=== PATIENT | female | born 1960 | race Caucasian/White ===

== ENCOUNTER → 2018-04-24 | Outpatient (CLI) | payer BC | END | disposition home or self-care (01) | LOC: LABPAT 12:44 | PROVIDERS: ATTEND Surgery Plastic and Reconstructive Surgery | DX: Z01.812 Encounter for preprocedural laboratory examination (principal); Z79.899 Other long term (current) drug therapy | CPT/HCPCS: 36415; 84132 ==

== ENCOUNTER 2018-04-28 08:15 | Inpatient (IN) | payer BC ==
[2018-04-21 08:54] VITALS: BMI 30.2
--- NOTE | 2018-04-28 07:12 | P.GSHP ---
History of Present Illness H&P Date: 04/28/18 CHIEF COMPLAINT: Paraesophageal hiatal hernia with gastroesophageal reflux disease. HISTORY OF PRESENT ILLNESS: The patient is a 58-year-old female who presents with paraesophageal hiatal hernia. She has completed an esophageal manometry including upper endoscopy workup. Now she presents for surgical intervention. PAST MEDICAL HISTORY: Please see list. PAST SURGICAL HISTORY: Please see list. MEDICATIONS: Please see list. ALLERGIES: Please see list. SOCIAL HISTORY: No illicit drug use FAMILY HISTORY: No reports of Crohn disease or ulcerative colitis. REVIEW OF ORGAN SYSTEMS: CONSTITUTIONAL: No reports of fevers or chills. GI: Denies any blood in stools or constipation. PHYSICAL EXAM: VITAL SIGNS: Stable GENERAL: Well-developed pleasant and in no acute distress. HEENT: No scleral icterus. Extraocular movements grossly intact. Moist buccal mucosa. NECK: Supple without lymphadenopathy. CHEST: Unlabored respirations. Equal bilateral excursions. CARDIOVASCULAR: Regular rate and rhythm. Distal 2+ pulses. ABDOMEN: Soft, nondistended. No peritoneal signs. MUSCULOSKELETAL: No clubbing, cyanosis, or edema. SKIN: Well-perfused. Good skin turgor. MANOMETRY: Shows no evidence of achalasia or scleroderma. ASSESSMENT: 1. Diaphragmatic paraesophageal hiatal hernia with severe gastroesophageal reflux disease. PLAN: 1. Recommend proceeding with a robotic paraesophageal hiatal hernia with possible mesh. 2. Benefits and risks of surgical intervention was discussed including possibility of open technique. 3. Inpatient hospitalization recommended of 2 nights 4. DVT prophylaxis. 5. Antibiotic prophylaxis. Past Medical History Past Medical History: Asthma, Diabetes Mellitus, GERD/Reflux, Hyperlipidemia, Hypertension, Osteoarthritis (OA), Sleep Apnea/CPAP/BIPAP Additional Past Medical History / Comment(s): borderline sleep apnea-doesn't use anything for, current steroids-has been on for few months, & frequently for past year History of Any Multi-Drug Resistant Organisms: None Reported Past Surgical History: Section, Cholecystectomy, Orthopedic Surgery, Tonsillectomy, Tubal Ligation Additional Past Surgical History / Comment(s): C/S x2, arthroscopy left knee, recent EGD Past Anesthesia/Blood Transfusion Reactions: Motion Sickness, Postoperative Nausea & Vomiting (PONV) Past Psychological History: Anxiety, Depression Smoking Status: Never smoker Past Alcohol Use History: None Reported Past Drug Use History: None Reported - Past Family History Mother Family Medical History: Cancer Medications and Allergies Home Medications Medication Instructions Recorded Confirmed Type Albuterol Nebulized [Ventolin 2.5 mg INHALATION Q6H PRN 04/21/18 04/21/18 History Nebulized] Albuterol Sulfate [Proair Hfa] 1 - 2 puff INHALATION Q6HR PRN 04/21/18 04/21/18 History Black Cohosh 540 mg PO DAILY 04/21/18 04/21/18 History Ezetimibe [Zetia] 10 mg PO DAILY 04/21/18 04/21/18 History Fluticasone/Salmeterol [Advair 1 inhalation PO BID 04/21/18 04/21/18 History 250-50 Diskus] Loratadine [Claritin] 10 mg PO DAILY 04/21/18 04/21/18 History Losartan-Hctz 50-12.5 mg [Hyzaar 1 each PO DAILY 04/21/18 04/21/18 History 50-12.5] Mometasone Furoate [Nasonex Nasal 1 - 2 spray EA NOSTRIL DAILY 04/21/18 History [place]] Montelukast [Singulair] 10 mg PO HS 04/21/18 04/21/18 History Multivit with Calcium,Iron,Min 1 each PO DAILY 04/21/18 04/21/18 History [Women's Multivitamin] Omeprazole [PriLOSEC] 20 mg PO AC-BRKFST 04/21/18 04/21/18 History Ranitidine HCl [Zantac] 150 mg PO HS 04/21/18 04/21/18 History Sertraline [Zoloft] 100 mg PO DAILY 04/21/18 04/21/18 History Theophylline Anhydrous 300 mg PO BID 04/21/18 04/21/18 History [Theophylline] Tiotropium [place] [Spiriva] 1 cap INHALATION DAILY 04/21/18 04/21/18 History metFORMIN HCL [Glucophage] 500 mg PO QAM 04/21/18 04/21/18 History predniSONE 5 mg PO DAILY 04/21/18 04/21/18 History Allergies Allergy/AdvReac Type Severity Reaction Status Date / Time ciprofloxacin [From Cipro] Allergy Dyspnea Verified 04/21/18 08:15 metronidazole [From Flagyl] Allergy Dyspnea Verified 04/21/18 08:15 sulfamethoxazole Allergy Rash/Hives Verified 04/21/18 08:15 [From Bactrim] trimethoprim [From Bactrim] Allergy Rash/Hives Verified 04/21/18 08:15 codeine AdvReac Nausea & Verified 04/21/18 08:15 Vomiting
[~2018-04-28 08:15] MED LIST: ACETAMINOPHEN IV (For NPO) 1,000 MG in EMPTY BAG 1 BAG IVPB ONE; DEXAMETHASONE SOD PHOSPHATE 10 MG/ML 1 ML VIAL IV ONE; HEPARIN SODIUM,PORCINE 5,000 UNIT/ML 1 ML VIAL SQ ONE; LIDOCAINE 1% 20 ML VIAL (10MG/ML) FOR IV START INTRADERMA PRN; MIDAZOLAM 2 MG/2 ML VIAL IV PRN; ONDANSETRON 4 MG/2 ML VIAL IVP ONE; SCOPOLAMINE 1.5MG/72HR PATCH TRANSDERM ONE; SCOPOLAMINE 1.5MG/72HR PATCH TRANSDERM STA; ceFAZolin IN SWFI 2 GM/20 ML SYRINGE IVP ONE
[2018-04-28] MEDS: LACTATED RINGERS 1,000 ML IV SCH ×2 (12:50→20:24)
[2018-04-28 12:52] LABS: Glucose,Whole Blood 125 mg/dL (75-99)
[2018-04-28 13:15] LABS: Basophils % (A) 1 %; Eosinophils # (A) 0.2 k/uL (0-0.7); Eosinophils % (A) 3 %; HCT 41.7 % (34.0-46.0); HGB 14.3 gm/dL (11.4-16.0); Lymphocytes # (A) 0.9 k/uL (1.0-4.8); Lymphocytes % (A) 15 %; MCHC 34.2 g/dL (31.0-37.0); MCV 87.8 fL (80.0-100.0); Mean Platelet Volume 7.3; Monocytes # (A) 0.3 k/uL (0-1.0); Monocytes % (A) 5 %; Neutrophils # (A) 4.8 k/uL (1.3-7.7); Neutrophils % (A) 75 %; Platelet Count 326 k/uL (150-450); RBC 4.75 m/uL (3.80-5.40); WBC 6.3 k/uL (3.8-10.6)
[2018-04-28 13:22] LABS: ALT 34 U/L (9-52); AST 21 U/L (14-36); Albumin 4.5 g/dL (3.5-5.0); Alkaline Phosphatase 62 U/L (38-126); Anion Gap 13 mmol/L; Blood Urea Nitrogen 15 mg/dL (7-17); Calcium 9.9 mg/dL (8.4-10.2); Carbon Dioxide 26 mmol/L (22-30); Chloride 100 mmol/L (98-107); Glucose 131 mg/dL (74-99); Sodium 139 mmol/L (137-145); Total Bilirubin 0.3 mg/dL (0.2-1.3); Total Protein 6.7 g/dL (6.3-8.2)
[2018-04-28] MEDS ORDERED: ACETAMINOPHEN IV (For NPO) 1,000 MG/100 ML VIAL IVPB ONE (15:06)
[2018-04-28] MEDS ORDERED: MIDAZOLAM 2 MG/2 ML VIAL ONE (15:32)
[2018-04-28] MEDS ORDERED: NEOSTIGMINE 1 MG/ML 10 ML VIAL ONE (15:32)
[2018-04-28] MEDS ORDERED: fentaNYL (PF) 50 MCG/ML 2 ML AMP ONE (15:32)
[2018-04-28] MEDS ORDERED: ROCURONIUM BROMIDE 10 MG/ML 10 ML VIAL IV ONE (15:32)
[2018-04-28] MEDS ORDERED: SUCCINYLCHOLINE CHLORIDE 100 MG/5 ML SYR IV ONE (15:32)
[2018-04-28] MEDS ORDERED: HYDROmorphone (PF) 1 MG/ML ONE (15:32)
[2018-04-28] MEDS ORDERED: KETOROLAC 30 MG/ML 1 ML VIAL ONE (15:32)
[2018-04-28] MEDS ORDERED: LIDOCAINE 1% INJ 10MG/ML (20 ML MDV) ONE (15:32)
[2018-04-28] MEDS ORDERED: ePHEDrine SULFATE/0.9% NACL/PF 50 MG/5 ML SYRINGE IV ONE (15:32)
[2018-04-28] MEDS ORDERED: GLYCOPYRROLATE 0.2 MG/ML 2 ML VIAL ONE (15:32)
[2018-04-28] MEDS ORDERED: PROPOFOL 10 MG/ML 20 ML VIAL IV ONE (15:32)
[2018-04-28] MEDS ORDERED: ROPIVACAINE 5 MG/ML 30 ML VIAL MISCELLANE ONE (15:46)
[2018-04-28] MEDS ORDERED: LACTATED RINGERS 1,000 ML IV ONE (16:32)
[2018-04-28] MEDS ORDERED: ONDANSETRON 4 MG/2 ML VIAL IVP PRN (17:46)
--- NOTE | 2018-04-28 17:46 | P.PCN ---
Date of Procedure: 04/28/18 Preoperative Diagnosis: Gastroesophageal reflux disease hiatal hernia, distal esophageal spasm Postoperative Diagnosis: Same, incarcerated paraesophageal midline hiatal hernia 6 x 9 cm Procedure(s) Performed: Robotic-assisted reduction and repair of incarcerated midline paraesophageal hiatal hernia with mesh Anesthesia: DEBRA, local Surgeon: Gabby Patel Estimated Blood Loss (ml): 5 Pathology: none sent Condition: stable Disposition: floor Operative Findings: 1. Extremely large Paraesophageal hiatal hernia with incarcerated upper pole a stomach size of 6 cm axial and 9 cm longitudinal 2. Mesh with primary closure with accommodated 54-Marshallese hiatal repair 3. Hill grade 1+ lower esophageal valve 4. No gastric ulcers or duodenal ulcers identified 5. Intraesophageal length of 3 cm obtained after reduction and mobilization of distal esophagus 6. Incision of hiatal hernia sac with reduction into the abdomen 7. Mesh repair with underlay
[2018-04-28] MEDS ORDERED: ALBUTEROL NEBULIZED 2.5 MG/3 ML INHALATION PRN (17:49)
[2018-04-28] MEDS: ACETAMINOPHEN IV (For NPO) 1,000 MG in EMPTY BAG 1 BAG IVPB ONE ×2 (18:00→18:15)
[2018-04-28] MEDS: HYDROmorphone 0.5 MG/0.5 ML SYRINGE IVP PRN ×2 (18:24→18:37)
[2018-04-28 18:29] LABS: Glucose,Whole Blood 176 mg/dL (75-99)
[2018-04-28] MEDS ORDERED: SODIUM CHLORIDE 0.9% 1,000 ML IV ONE ×2 (18:30)
[2018-04-28] MEDS ORDERED: INSULIN ASPART 100 UNIT/ML 1 ML 10 ML VIAL SQ ONE (18:37)
[2018-04-28] MEDS ORDERED: ONDANSETRON 4 MG/2 ML VIAL IVP ONE (18:39)
[2018-04-28] MEDS: SODIUM CHLORIDE 0.9% 1,000 ML IV SCH (20:24)
[2018-04-28] MEDS: METOCLOPRAMIDE 5 MG/ML 2 ML VIAL IVP SCH (20:29)
[2018-04-28] MEDS ORDERED: DEXAMETHASONE SOD PHOSPHATE 10 MG/ML 1 ML VIAL IV STA (20:46)
[2018-04-28] MEDS ORDERED: ACETAMINOPHEN ORAL SUSP 160 MG/5 ML CUP PO PRN (20:47)
[2018-04-28] MEDS ORDERED: KETOROLAC 30 MG/ML 1 ML VIAL IVP PRN (20:47)
[2018-04-28] MEDS ORDERED: MONTELUKAST 10 MG TAB PO SCH (21:00)
[2018-04-28] MEDS: SYMBICORT 80-4.5 MCG INHALER INHALATION SCH (21:12)
[2018-04-28] MEDS: ceFAZolin IN SWFI 2 GM/20 ML SYRINGE IVP SCH (23:50)
[2018-04-29] MEDS: METOCLOPRAMIDE 5 MG/ML 2 ML VIAL IVP SCH ×3 (01:20→11:53)
[2018-04-29 06:54] LABS: Glucose,Whole Blood 144 mg/dL (75-99)
[2018-04-29] MEDS: INSULIN ASPART 100 UNIT/ML 1 ML 10 ML VIAL SQ SCH ×2 (06:57→11:52)
[2018-04-29] MEDS: SODIUM CHLORIDE 0.9% 1,000 ML IV SCH (07:15)
[2018-04-29] MEDS: SYMBICORT 80-4.5 MCG INHALER INHALATION SCH (08:28)
[2018-04-29] MEDS: IPRATROPIUM 0.5 MG/2.5 ML NEBU INHALATION SCH ×2 (08:28→11:51)
--- NOTE | 2018-04-29 08:28 | FL ---
SINGLE CONTRAST ESOPHAGRAM: CLINICAL HISTORY: 58-year-old female status post Tamika fundoplication, rule out leak/obstruction TECHNIQUE: Single contrast exam performed with 50 ml Isovue-370 contrast. Total fluoroscopy time: 28 seconds. Total images: 15 FINDINGS: The patient swallowed oral contrast without difficulty or delay. Esophageal peristalsis shows mild t ertiary contractions. There are postsurgical changes of Tamika fundoplication with good flow of contr ast across the surgical site into the stomach. Prominent air distention of the stomach is incidentall y noted. There is no evidence of contrast extravasation to suggest leak. Trace postsurgical free air below the right hemidiaphragm. IMPRESSION: 1. No evidence of leak or obstruction status post Tamika fundoplication. 2. Trace postsurgical free air on the right.
[2018-04-29] MEDS: ceFAZolin IN SWFI 2 GM/20 ML SYRINGE IVP SCH (08:52)
[2018-04-29] MEDS ORDERED: THEOPHYLLINE 24 HOUR 300 MG CAP.ER.24H PO SCH (09:00)
[2018-04-29] MEDS ORDERED: ENOXAPARIN 40 MG/0.4 ML SYRINGE SQ SCH (09:00)
[2018-04-29] MEDS ORDERED: predniSONE 5 MG TAB PO SCH (09:00)
[2018-04-29] MEDS ORDERED: EZETIMIBE 10 MG TAB PO SCH (09:00)
[2018-04-29] MEDS ORDERED: PANTOPRAZOLE 40 MG/10 ML VIAL IV SCH (09:00)
[2018-04-29] MEDS ORDERED: LOSARTAN-HCTZ 50-12.5 MG 1 EACH TAB PO SCH (09:00)
[2018-04-29] MEDS ORDERED: LORATADINE 10 MG TAB PO SCH (09:00)
[2018-04-29 09:09] VITALS: BP 112/72; PULSE 84; RESP 20; TEMP 97
[2018-04-29] MEDS ORDERED: PANTOPRAZOLE 40 MG TABLET PO SCH (10:00)
[2018-04-29 11:49] LABS: Glucose,Whole Blood 100 mg/dL (75-99)
--- NOTE | 2018-04-29 12:22 | P.DS ---
Providers Date of admission: 04/28/18 12:05 Expected date of discharge: 04/29/18 Attending physician: Gabby Patel Primary care physician: Stated None - Discharge Diagnosis(es) (1) Paraesophageal hernia with obstruction but no gangrene Current Visit: Yes Status: Acute (2) Gastroesophageal reflux disease with esophagitis Current Visit: Yes Status: Acute (3) COPD (chronic obstructive pulmonary disease) Current Visit: Yes Status: Acute (4) Obesity (BMI 30.0-34.9) Current Visit: Yes Status: Acute (5) Obesity due to excess calories Current Visit: Yes Status: Acute (6) Hypertensive heart disease Current Visit: Yes Status: Acute (7) Depressive disorder Current Visit: Yes Status: Acute (8) Diabetes type 2, controlled Current Visit: Yes Status: Acute Hospital Course: The patient is a 58-year-old female status post robotic-assisted repair of incarcerated large paraesophageal hiatal hernia repair with mesh. She is doing extraordinarily well. Pain is well controlled. No nausea or vomiting. In fact , symptoms of reflux completely resolved. She completed an esophagram negative for leaks or obstruction. Discharge was reviewed including liquid diet until seen in the office. Avoidance of straws and carbonated beverages addressed. High-protein diet also advised. Pertinent Studies: Esophagram negative for leaks or obstruction Procedures: Robotic repair of incarcerated paraesophageal hiatal hernia 6 x 9 cm with mesh, intraoperative EGD Patient Condition at Discharge: Good Plan - Discharge Summary Discharge Rx Participant: Yes New Discharge Prescriptions: Continue Sertraline [Zoloft] 100 mg PO DAILY Losartan-Hctz 50-12.5 mg [Hyzaar 50-12.5] 1 tab PO DAILY Fluticasone/Salmeterol [Advair 250-50 Diskus] 1 puff INHALATION RT-DAILY Ezetimibe [Zetia] 10 mg PO DAILY metFORMIN HCL [Glucophage] 500 mg PO QAM Tiotropium [place] [Spiriva] 1 cap INHALATION RT-DAILY Montelukast [Singulair] 10 mg PO HS Loratadine [Claritin] 10 mg PO DAILY predniSONE 5 mg PO DAILY Mometasone Furoate [Nasonex Nasal [place]] 1 - 2 spray EA NOSTRIL DAILY Albuterol Sulfate [Proair Hfa] 1 - 2 puff INHALATION RT-Q6H PRN PRN Reason: Dyspnea Albuterol Nebulized [Ventolin Nebulized] 2.5 mg INHALATION RT-Q6H PRN PRN Reason: Dyspnea Discontinued Ranitidine HCl [Zantac] 150 mg PO HS Omeprazole [PriLOSEC] 20 mg PO AC-BRKFST Multivit with Calcium,Iron,Min [Women's Multivitamin] 1 tab PO DAILY [place] Coh[place] 540 mg PO DAILY Theophylline 12 Hour [Michele-Dur] 300 mg PO BID Discharge Medication List Albuterol Nebulized [Ventolin Nebulized] 2.5 mg INHALATION RT-Q6H PRN 04/21/18 [ History] Albuterol Sulfate [Proair Hfa] 1 - 2 puff INHALATION RT-Q6H PRN 04/21/18 [ History] Ezetimibe [Zetia] 10 mg PO DAILY 04/21/18 [History] Fluticasone/Salmeterol [Advair 250-50 Diskus] 1 puff INHALATION RT-DAILY [History] Loratadine [Claritin] 10 mg PO DAILY 04/21/18 [History] Losartan-Hctz 50-12.5 mg [Hyzaar 50-12.5] 1 tab PO DAILY 04/21/18 [History] Mometasone Furoate [Nasonex Nasal [place]] 1 - 2 spray EA NOSTRIL DAILY 04/21/18 [ History] Montelukast [Singulair] 10 mg PO HS 04/21/18 [History] Sertraline [Zoloft] 100 mg PO DAILY 04/21/18 [History] Tiotropium [place] [Spiriva] 1 cap INHALATION RT-DAILY 04/21/18 [History] metFORMIN HCL [Glucophage] 500 mg PO QAM 04/21/18 [History] predniSONE 5 mg PO DAILY 04/21/18 [History] Follow up Appointment(s)/Referral(s): Gabby Patel MD [STAFF PHYSICIAN] - 05/02/18 ([facility], Call on Tuesday to confirm a time) Patient Instructions/Handouts: Laparoscopic Hiatal Hernia Repair (DC) Activity/Diet/Wound Care/Special Instructions: No lifting over 4 pounds in 4 weeks. May shower. No bath tub soaks. Liquid diet only as described by your surgeon. Recommend high protein diet at least 75 g daily. Please check your blood sugar glucose levels. Hypoglycemia may occur with high-protein diet. Discharge Disposition: HOME SELF-CARE
--- NOTE | 2018-04-29 12:24 | P.PN ---
Subjective Progress Note Date: 04/29/18 The patient is a 58-year-old female status post robotics assisted hiatal hernia repair. Her pain is well-controlled. She is toelarating liquid diet. "My reflux is gone.". Her is at bedside. Objective - Vital Signs Vital signs: Vital Signs Temp 97.0 F L 04/29/18 08:40 Pulse 84 04/29/18 11:53 Resp 20 04/29/18 08:40 BP 112/72 04/29/18 08:40 Pulse Ox 96 04/29/18 08:40 Intake & Output 04/28/18 04/29/18 04/29/18 18:59 06:59 18:59 Intake Total 2074 Output Total 5 300 200 Balance 2069 -300 -200 Weight 72.575 kg Intake: IV 2074 Output: Urine 300 200 Estimated Blood Loss 5 Other: Voiding Method Toilet # Voids 1 - Exam GENERAL: Well developed and in no acute distress. Pleasant. HEENT: No sclera icterus. Extraocular movements grossly intact. Moist buccal mucosa. Head is atraumatic, normocephalic. Hears conversational speech. No nasal drainage. NECK: Supple without lymphadenopathy. No JV distention. CHEST: Non-labored respirations and equal bilateral excursions. CARDIOVASCULAR: Regular rate and rhythm. Palpable 2+ radial pulses. ABDOMEN: Soft, nontender. Nondistended. Incisions clean dry and intact. No signs of infection. MUSCULOSKELETAL: No clubbing, cyanosis or edema. NEUROLOGIC: No focal or lateralizing signs. PSYCH: Appropriate affect. Alert and oriented to person, place and time. SKIN: Good skin turgor. Well perfused. - Labs CBC & Chem 7: 04/28/18 12:57 04/28/18 12:57 Labs: Abnormal Lab Results - Last 24 Hours (Table) 04/28/18 04/28/18 04/28/18 Range/Units 12:46 12:57 12:57 Lymphocytes # 0.9 L (1.0-4.8) k/uL Glucose 131 H (74-99) mg/dL POC Glucose (mg/dL) 125 H (75-99) mg/dL 04/28/18 04/29/18 04/29/18 Range/Units 18:20 06:53 11:47 Lymphocytes # (1.0-4.8) k/uL Glucose (74-99) mg/dL POC Glucose (mg/dL) 176 H 144 H 100 H (75-99) mg/dL - Imaging and Cardiology Esophagram reviewed and negative for leaks. Assessment and Plan (1) Paraesophageal hernia with obstruction but no gangrene Current Visit: Yes Status: Acute Code(s): K44.0 - DIAPHRAGMATIC HERNIA WITH OBSTRUCTION, WITHOUT GANGRENE SNOMED Code(s): 99610573 (2) Gastroesophageal reflux disease with esophagitis Current Visit: Yes Status: Acute Code(s): K21.0 - GASTRO-ESOPHAGEAL REFLUX DISEASE WITH ESOPHAGITIS SNOMED Code(s): 764133387 (3) COPD (chronic obstructive pulmonary disease) Current Visit: Yes Status: Acute Code(s): J44.9 - CHRONIC OBSTRUCTIVE PULMONARY DISEASE, UNSPECIFIED SNOMED Code(s): 22300592 (4) Obesity (BMI 30.0-34.9) Current Visit: Yes Status: Acute Code(s): E66.9 - OBESITY, UNSPECIFIED SNOMED Code(s): 254201304 (5) Obesity due to excess calories Current Visit: Yes Status: Acute Code(s): E66.09 - OTHER OBESITY DUE TO EXCESS CALORIES SNOMED Code(s): 667308137 (6) Hypertensive heart disease Current Visit: Yes Status: Acute Code(s): I11.9 - HYPERTENSIVE HEART DISEASE WITHOUT HEART FAILURE SNOMED Code(s): 30055227 (7) Depressive disorder Current Visit: Yes Status: Acute Code(s): F32.9 - MAJOR DEPRESSIVE DISORDER , SINGLE EPISODE, UNSPECIFIED SNOMED Code(s): 34621054 (8) Diabetes type 2, controlled Current Visit: Yes Status: Acute Code(s): E11.9 - TYPE 2 DIABETES MELLITUS WITHOUT COMPLICATIONS SNOMED Code(s): 05709574 Plan: 1. Discharge instructions reviewed including discontinuance of antacid therapy 2. She has had no significant pain and is agreeable Tylenol only. 3. Follow-up in the office in 5 days.
--- NOTE | 2018-04-30 11:25 | P.PN ---
Progress Note - Text Progress Note Date: 04/30/18 Patient called at home. reports she is doing extremely well. Discharge time and follow-up appointment given.
--- NOTE | 2018-04-30 18:14 | P.OP ---
Date of Procedure: 04/28/18 Description of Procedure: Date of Procedure: 04/28/18 SURGEON: MIESHA FAJARDO MD PREOPERATIVE DIAGNOSES: 1. Gastroesophageal reflux disease. 2. Paraesophageal hiatal hernia, midline 3. Distal esophageal spasm 4. Chronic obstructive pulmonary disease 5. Asthma 6. Obesity due to excess calories, BMI 30.2 7. Hypertensive heart disease 8. Depressive disorder 9. Diabetes type 2, [id number] without complication 10. Obstructive sleep apnea 11. Hyperlipidemia POSTOPERATIVE DIAGNOSES: 1. Gastroesophageal reflux disease. 2. Paraesophageal hiatal hernia incarcerated paraesophageal midline, 6 x 9 cm 3. Distal esophageal spasm 4. Chronic obstructive pulmonary disease 5. Asthma 6. Obesity due to excess calories, BMI 30.2 7. Hypertensive heart disease 8. Depressive disorder 9. Diabetes type 2, [id number]-ncallfjeh without complication 10. Obstructive sleep apnea 11. Hyperlipidemia OPERATION: 1. Robotic-assisted da Annmarie Xi laparoscopic reduction and repair of incarcerated paraesophageal hiatal hernia, 6 x 9 cm, with [place] Biopatch A 8 x 8 cm. 2. Intraoperative esophagogastroduodenoscopy COMPLICATIONS: None. Anesthesia: GETA, local Estimated Blood Loss (ml): 5 Pathology: none sent Condition: stable Disposition: floor Operative Findings: 1. Extremely large paraesophageal hiatal hernia with incarcerated upper pole of the stomach size of 6 cm axial and 9 cm longitudinal 2. Mesh with primary closure with accommodated 54-[place] hiatal repair 3. Hill grade 1+ lower esophageal valve 4. No gastric ulcers or duodenal ulcers identified 5. Intraesophageal length of 3 cm obtained after reduction and mobilization of distal esophagus 6. Incision of hiatal hernia sac with reduction into the abdomen 7. Mesh repair with underlay 8. Console time 69 minutes INDICATIONS: The patient is a 67-year-old female who presents with gastroesophageal reflux and a symptomatic diaphragmatic hiatal hernia. Preoperative workup including upper endoscopy demonstrated hiatal hernia. She completed an esophageal manometry demonstrating distal esophageal spasm. Given the severity of her symptoms, she had elected for surgical intervention. Benefits and risks including bleeding, infection, recurrence, dysphagia, injury to the lung, need for further surgery was described at length. Informed consent was obtained. DESCRIPTION: The patient was brought into the operating room and placed in supine position. Preoperatively he had received heparin subcutaneously for DVT prophylaxis. After general induction, the abdomen was prepped and draped in standard sterile fashion. The patient had previously voided prior to coming to the operating room. [place] draping was placed along the abdomen. A timeout protocol was confirmed with the surgical team, for which the patient's name, procedure to be performed including DVT prophylaxis with bilateral SCDs, and preoperative antibiotics were also confirmed. Robotic da Annmarie Xi system was prepped and primed. At 12 cm from the xiphoid to just below the umbilicus, proposed port sites were marked with indelible marker along the left axillary line, left mid-clavicular line with each ports were marked 10 cm from each other. A 5 mm 0 degrees laparoscopic trocar entry was performed along the left upper quadrant. The abdomen was insufflated to 15 mmHg pressure he tolerated well. Diagnostic laparoscopy demonstrated no injury to bowel, viscera, or mesentery. The gallbladder was unremarkable. The liver surface was unremarkable. No injury had occurred to the small bowel or viscera. Along the hiatus, moderate size hiatal hernia anterior aspect with incarcerated superior pole of the stomach. Next, one 8 mm robotic port was placed along the right upper abdomen. An 8-mm port was were placed along the left lateral abdominal wall. The camera 8-mm port was maintained along the epigastrium via the hernia defect. A 12 mm port was placed along the left upper abdominal wall after exchanging the 5 mm port. Please note that the ports were placed at least 20 cm away from the target anatomy. Care was taken to check that each robotic arm were safely away from collision with the bed or the patient. At the epigastrium, a medium sized Elise liver retractor was placed under direct visualization with the [employer] placed over the right shoulder of the patient. The additional third robotic arm was used.. The patient was repositioned in reverse Trendelenburg position at 14-degrees after lowering the bed. The robot was docked above the left side of the patient. Using a grasper for arm 3, a grasper for arm 1, including vessel sealer for arm 4, the robotic system was docked and primed as described. Instruments were interchanged by the social worker assistant. I had sat at the console. The phrenoesophageal ligament was incised and the distal esophagus was mobilized circumferentially. Care was taken to avoid any injury to the bilateral vagi nerves. An incarcerated hiatal hernia sac was found along the mediastinum and retracted into the abdominal cavity. Next dissection into the mediastinum was performed to the mid esophagus. The left and right crura was identified. The hiatal hernia sac was incarcerated into the mediastinum and divided to allow complete mobilization and freeing of the distal esophagus into the abdominal cavity. Care was taken to avoid any gastrotomy to the incarcerated upper pole of the stomach. The measured defect was consistent with 9 cm length and 6 cm in width. The distal esophagus of at least 3 cm was brought into the abdominal cavity. Once the hiatus and crura was dissected, 2-0 VLOC sutures were placed as a running suture to re-approximate the diaphragmatic hiatus posteriorly. To buttress the repair, a [place] Biopatch A was prepared along the back table and cut in a chauhan-hole fashion as to reinforce the repair as an underlay. The mesh was placed along the crural repair posteriorly then cut in half and tagged using horizontal mattress sutures using 2-0 VLOC. I went to the head of the bed to perform intraoperative esophagogastroduodenoscopy. An Olympus gastroscope was passed through the posterior oropharynx, where the GE junction was found distal to the diaphragmatic hiatus. The intra-abdominal esophageal length obtained during the case was over 3 cm. The stomach was entered. The duodenum was unremarkable. Retroflexion of the scope confirmed a Hill grade 1+ lower esophageal valve. The stomach had been desufflated. No evidence of leaks were found or mucosal defects of the esophagus or stomach. This concluded the endoscopic portion of the case. The robot was undocked from the patient. I re-scrubbed into the case. All instruments and pneumoperitoneum were evacuated from the abdominal cavity. Incisions were reapproximated using 4-0 Monocryl in an interrupted subcuticular fashion. All incisions were cleaned using dilute hydrogen peroxide. The 12-mm port site fascial defect was less than 8 mm in size. Dermabond was applied to the skin. Local anesthetic was infiltrated in all wounds for postop analgesia. Multiple intra-abdominal films were obtained. At the end of the procedure, needle, sponge, and instrument count was verified correct by the surgical dressing maker. The patient had tolerated the procedure well and was taken to the postanesthesia unit in stable condition. Intraoperative films were reviewed with the patient's family who were pleased with the level of care.
== END 2018-04-29 12:55 | disposition home or self-care (01) | DRG 328 ==
LOC: 2ORMAIN 12:05 → 6PED 17:35
PROVIDERS: ADMIT Surgery Plastic and Reconstructive Surgery; ATTEND Surgery Plastic and Reconstructive Surgery
PROC: 0BUT4JZ Supplement Diaphragm with Synthetic Substitute, Percutaneous Endoscopic Approach (ICD-10-PCS; principal; 2018-04-28 13:35)
PROC: 8E0W4CZ Robotic Assisted Procedure of Trunk Region, Percutaneous Endoscopic Approach (ICD-10-PCS; principal; 2018-04-28 13:35)
DX: K44.0 Diaphragmatic hernia with obstruction, without gangrene (principal); E11.9 Type 2 diabetes mellitus without complications; E66.09 Other obesity due to excess calories; E78.5 Hyperlipidemia, unspecified; M19.90 Unspecified osteoarthritis, unspecified site; F32.9 Major depressive disorder, single episode, unspecified; F41.9 Anxiety disorder, unspecified; G47.33 Obstructive sleep apnea (adult) (pediatric); I11.9 Hypertensive heart disease without heart failure; J44.9 Chronic obstructive pulmonary disease, unspecified; K21.0 Gastro-esophageal reflux disease with esophagitis; K22.4 Dyskinesia of esophagus; Z68.30 Body mass index [BMI] 30.0-30.9, adult; Z90.49 Acquired absence of other specified parts of digestive tract; Z79.51 Long term (current) use of inhaled steroids; Z79.52 Long term (current) use of systemic steroids; Z79.899 Other long term (current) drug therapy; Z79.84 Long term (current) use of oral hypoglycemic drugs; Z88.1 Allergy status to other antibiotic agents; Z88.5 Allergy status to narcotic agent; Z88.2 Allergy status to sulfonamides
CPT/HCPCS: 74210; 80053; 85025; 86850; 86900; 86901; 94640

== ENCOUNTER → 2018-07-18 | Outpatient (CLI) | payer BC ==
[2018-07-18 16:06] LABS: Basophils # (A) 0.1 k/uL (0-0.2); Basophils % (A) 1 %; Eosinophils # (A) 0.6 k/uL (0-0.7); Eosinophils % (A) 9 %; HCT 44.3 % (34.0-46.0); HGB 14.3 gm/dL (11.4-16.0); Lymphocytes # (A) 1.6 k/uL (1.0-4.8); Lymphocytes % (A) 24 %; MCH 28.7 pg (25.0-35.0); MCHC 32.3 g/dL (31.0-37.0); MCV 88.9 fL (80.0-100.0); Mean Platelet Volume 7.2; Monocytes # (A) 0.4 k/uL (0-1.0); Monocytes % (A) 7 %; Neutrophils # (A) 3.7 k/uL (1.3-7.7); Neutrophils % (A) 57 %; Platelet Count 359 k/uL (150-450); RBC 4.98 m/uL (3.80-5.40); RDW 12.8 % (11.5-15.5); WBC 6.5 k/uL (3.8-10.6)
[2018-07-18 16:18] LABS: Total Eosinophil Count 625 #EOS/uL (150-300)
== END ==
LOC: LABWHC1 15:26
PROVIDERS: ATTEND Internal Medicine
DX: J45.50 Severe persistent asthma, uncomplicated (principal)
CPT/HCPCS: 36415; 85008; 85025

== ENCOUNTER → 2021-09-24 | Outpatient (CLI) | payer BC ==
--- NOTE | 2021-09-24 09:51 | FL ---
ESOPHOGRAM. HISTORY: Dysphagia Esophagram was performed per the air contrast technique. The patient swallowed barium and effervesce nt crystals without difficulty or delay. Esophageal peristalsis and motility appear to be within normal limits. There is no evidence for filling defect, mass or diverticulum. Small hiatal hernia noted. Subsequently single contrast cervical esophagram was performed which fails demonstrate evidence for a spiration penetration or mass. IMPRESSION: Small hiatal hernia noted.
== END | disposition home or self-care (01) ==
LOC: RADUSWWP 07:50
PROVIDERS: ATTEND Surgery Plastic and Reconstructive Surgery
DX: K44.9 Diaphragmatic hernia without obstruction or gangrene (principal)
CPT/HCPCS: 74220

== ENCOUNTER 2021-10-28 08:16 | Day surgery (SDC) | payer BC ==
[2021-10-26 16:30] VITALS: BMI 26.8
[~2021-10-28 08:16] MED LIST changes: -ACETAMINOPHEN IV (For NPO) 1,000 MG in EMPTY BAG 1 BAG IVPB ONE; -DEXAMETHASONE SOD PHOSPHATE 10 MG/ML 1 ML VIAL IV ONE; -HEPARIN SODIUM,PORCINE 5,000 UNIT/ML 1 ML VIAL SQ ONE; +LACTATED RINGERS 1,000 ML IV SCH; -LIDOCAINE 1% 20 ML VIAL (10MG/ML) FOR IV START INTRADERMA PRN; -MIDAZOLAM 2 MG/2 ML VIAL IV PRN; -ONDANSETRON 4 MG/2 ML VIAL IVP ONE; -SCOPOLAMINE 1.5MG/72HR PATCH TRANSDERM ONE; -SCOPOLAMINE 1.5MG/72HR PATCH TRANSDERM STA; -ceFAZolin IN SWFI 2 GM/20 ML SYRINGE IVP ONE
--- NOTE | 2021-10-28 08:39 | P.GSHP ---
History of Present Illness H&P Date: 10/28/21 CHIEF COMPLAINT: GERD HISTORY OF PRESENT ILLNESS: The patient is a 61-year-old female who presents reports gastroesophageal reflux disease. Upper endoscopy was offered for further evaluation and management. PAST MEDICAL HISTORY: Please see list. PAST SURGICAL HISTORY: Please see list. MEDICATIONS: Please see list. ALLERGIES: Please see list. SOCIAL HISTORY: No illicit drug use FAMILY HISTORY: No reports of Crohn disease or ulcerative colitis. REVIEW OF ORGAN SYSTEMS: CONSTITUTIONAL: No reports of fevers or chills. GI: Denies any blood in stools or constipation. PHYSICAL EXAM: VITAL SIGNS: Stable GENERAL: Well-developed and pleasant in no acute distress. HEENT: No scleral icterus. Extraocular movements grossly intact. Moist buccal mucosa. NECK: Supple without lymphadenopathy. CHEST: Unlabored respirations. Equal bilateral excursions. CARDIOVASCULAR: Regular rate and rhythm. Distal 2+ pulses. ABDOMEN: Soft, nondistended. MUSCULOSKELETAL: No clubbing, cyanosis, or edema. ASSESSMENT: 1. Gastroesophageal reflux disease PLAN: 1. Recommend proceeding with an upper endoscopy Past Medical History Past Medical History: Asthma, CVA/TIA, Diabetes Mellitus, GERD/Reflux, Hyperlipidemia, Hypertension, Osteoarthritis (OA), Sleep Apnea/CPAP/BIPAP Additional Past Medical History / Comment(s): borderline sleep apnea-doesn't use anything for, current steroids-has been on for few months, & frequently for past year History of Any Multi-Drug Resistant Organisms: None Reported Past Surgical History: Section, Cholecystectomy, Orthopedic Surgery, Tonsillectomy, Tubal Ligation Additional Past Surgical History / Comment(s): C/S x2, arthroscopy left knee, EGD, HIATAL HERNIA REPAIR Past Anesthesia/Blood Transfusion Reactions: Motion Sickness, Postoperative Nausea & Vomiting (PONV) Smoking Status: Never smoker - Past Family History Mother Family Medical History: Cancer Medications and Allergies Home Medications Medication Instructions Recorded Confirmed Type Albuterol Sulfate [Proair Hfa] 1 - 2 puff INHALATION RT-Q6H PRN 04/21/18 10/26/21 History Ezetimibe [Zetia] 10 mg PO DAILY 04/21/18 10/26/21 History Fluticasone/Salmeterol [Advair 2 puff INHALATION BID 04/21/18 10/26/21 History 250-50 Diskus] Loratadine [Claritin] 10 mg PO DAILY 04/21/18 10/26/21 History Losartan-Hctz 50-12.5 mg [Hyzaar 1 tab PO QAM 04/21/18 10/26/21 History 50-12.5] Mometasone Furoate [Nasonex 50 mcg 1 - 2 spray EA NOSTRIL DAILY 04/21/18 10/26/21 History Nasal [place]] Montelukast [Singulair] 10 mg PO HS 04/21/18 10/26/21 History Sertraline [Zoloft] 100 mg PO DAILY 04/21/18 10/26/21 History Tiotropium [place] [Spiriva] 1 cap INHALATION DAILY 04/21/18 10/26/21 History metFORMIN HCL [Glucophage] 500 mg PO QAM 04/21/18 10/26/21 History Alendronate Sodium [Fosamax] 70 mg PO MO 10/19/21 10/26/21 History Aspirin 81 mg PO DAILY 10/19/21 10/26/21 History Benralizumab [Fasenra] 30 mg SQ Q60D 10/19/21 10/26/21 History Calcium Carbonate [Calcium] 1,200 mg PO DAILY 10/19/21 10/26/21 History Multivitamins, Thera [Multivitamin 1 tab PO DAILY 10/19/21 10/26/21 History (formulary)] amLODIPine [Norvasc] 2.5 mg PO HS 10/19/21 10/26/21 History Allergies Allergy/AdvReac Type Severity Reaction Status Date / Time ciprofloxacin [From Cipro] Allergy Dyspnea Verified 10/28/21 08:36 metronidazole [From Flagyl] Allergy Dyspnea Verified 10/28/21 08:36 sulfamethoxazole Allergy Rash/Hives Verified 10/28/21 08:36 [From Bactrim] trimethoprim [From Bactrim] Allergy Rash/Hives Verified 10/28/21 08:36 codeine AdvReac Nausea & Verified 10/28/21 08:36 Vomiting
[2021-10-28] MEDS ORDERED: LIDOCAINE 1% (10MG/ML) FOR IV START INTRADERMA ONE (08:58)
[2021-10-28 09:02] VITALS: RESP 16; TEMP 98.5
[2021-10-28 09:04] LABS: Glucose,Whole Blood 116 mg/dL (75-99)
[2021-10-28] MEDS ORDERED: ONDANSETRON 4 MG/2 ML VIAL ONE (09:04)
[2021-10-28] MEDS ORDERED: ONDANSETRON 4 MG/2 ML VIAL IVP ONE (09:05)
[2021-10-28] MEDS ORDERED: LIDOCAINE 1% INJ 10MG/ML (20 ML MDV) ONE (09:06)
[2021-10-28] MEDS ORDERED: PROPOFOL 10 MG/ML 20 ML VIAL IV ONE (09:06)
[2021-10-28 09:25] VITALS: BP 128/79; PULSE 68
--- NOTE | 2021-10-28 09:26 | P.PCN ---
Date of Procedure: 10/28/21 Description of Procedure: PREOPERATIVE DIAGNOSIS: Gastroesophageal reflux disease. POSTOPERATIVE DIAGNOSIS: Gastroesophageal reflux disease with erosive esophagitis OPERATION: Esophagogastroduodenoscopy with biopsies along esophagus SURGEON: Gabby Patel MD ANESTHESIA: MAC. INDICATIONS: The patient is a 61-year-old female who presents with a history of reflux disease. Benefits and risks of the procedure were described. Informed consent was obtained. DESCRIPTION: The patient was brought into the endoscopy suite and laid in the left lateral decubitus position. An Olympus gastroscope was passed along the posterior oropharynx down to the distal esophagus where the squamocolumnar junction was encountered at 36 cm from the incisors. The stomach was entered and no bile reflux was found. Additional findings are listed below. Biopsies with cold forceps were obtained of the antrum. The first through third portion of the duodenum was examined and unremarkable. Retroflexion of the scope confirmed Hill grade 3 lower esophageal valve. The squamocolumnar junction demonstrated LA grade B erosive esophagitis. The stomach was desufflated. The patient tolerated the procedure well. FINDINGS: Squamocolumnar junction 36 cm from the incisors. Diaphragmatic hiatus at 36 cm. Hill grade 3 lower esophageal valve. LA grade A erosive esophagitis with biopsies obtained No active duodenitis. Chronic gastritis RECOMMENDATIONS: Upper endoscopy as needed. Omeprazole 40 mg daily 2 weeks Plan - Discharge Summary Discharge Rx Participant: No New Discharge Prescriptions: New Omeprazole [PriLOSEC] 40 mg PO DAILY #14 cap Continue Sertraline [Zoloft] 100 mg PO DAILY Losartan-Hctz 50-12.5 mg [Hyzaar 50-12.5] 1 tab PO QAM Fluticasone/Salmeterol [Advair 250-50 Diskus] 2 puff INHALATION BID Ezetimibe [Zetia] 10 mg PO DAILY metFORMIN HCL [Glucophage] 500 mg PO QAM Tiotropium [place] [Spiriva] 1 cap INHALATION DAILY Montelukast [Singulair] 10 mg PO HS Loratadine [Claritin] 10 mg PO DAILY Mometasone Furoate [Nasonex 50 mcg Nasal [place]] 1 - 2 spray EA NOSTRIL DAILY Albuterol Sulfate [Proair Hfa] 1 - 2 puff INHALATION RT-Q6H PRN PRN Reason: Dyspnea amLODIPine [Norvasc] 2.5 mg PO HS Alendronate Sodium [Fosamax] 70 mg PO MO Multivitamins, Thera [Multivitamin (formulary)] 1 tab PO DAILY Aspirin 81 mg PO DAILY Calcium Carbonate [Calcium] 1,200 mg PO DAILY Benralizumab [Fasenra] 30 mg SQ Q60D Discharge Medication List Albuterol Sulfate [Proair Hfa] 1 - 2 puff INHALATION RT-Q6H PRN 04/21/18 [History] Ezetimibe [Zetia] 10 mg PO DAILY 04/21/18 [History] Fluticasone/Salmeterol [Advair 250-50 Diskus] 2 puff INHALATION BID 04/21/18 [History] Loratadine [Claritin] 10 mg PO DAILY 04/21/18 [History] Losartan-Hctz 50-12.5 mg [Hyzaar 50-12.5] 1 tab PO QAM 04/21/18 [History] Mometasone Furoate [Nasonex 50 mcg Nasal [place]] 1 - 2 spray EA NOSTRIL DAILY 04/21/18 [History] Montelukast [Singulair] 10 mg PO HS 04/21/18 [History] Sertraline [Zoloft] 100 mg PO DAILY 04/21/18 [History] Tiotropium [place] [Spiriva] 1 cap INHALATION DAILY 04/21/18 [History] metFORMIN HCL [Glucophage] 500 mg PO QAM 04/21/18 [History] Alendronate Sodium [Fosamax] 70 mg PO MO 10/19/21 [History] Aspirin 81 mg PO DAILY 10/19/21 [History] Benralizumab [Fasenra] 30 mg SQ Q60D 10/19/21 [History] Calcium Carbonate [Calcium] 1,200 mg PO DAILY 10/19/21 [History] Multivitamins, Thera [Multivitamin (formulary)] 1 tab PO DAILY 10/19/21 [History] amLODIPine [Norvasc] 2.5 mg PO HS 10/19/21 [History] Omeprazole [PriLOSEC] 40 mg PO DAILY #14 cap 10/28/21 [Rx] Follow up Appointment(s)/Referral(s): Gabby Patel MD [STAFF PHYSICIAN] - 11/24/21 (Please call to confirm time) Patient Instructions/Handouts: Gastroesophageal Reflux Disease (DC) Discharge Disposition: HOME SELF-CARE
== END 2021-10-28 10:15 | disposition home or self-care (01) ==
LOC: ORWHC2ENDO 08:16
PROVIDERS: ATTEND Surgery Plastic and Reconstructive Surgery
DX: K22.10 Ulcer of esophagus without bleeding (principal); K21.9 Gastro-esophageal reflux disease without esophagitis
CPT/HCPCS: 43239; J2405; J2001; J2704; 88305; 88312

== ENCOUNTER 2022-04-18 10:50 | Emergency (ER) | payer BC ==
[2022-04-18 11:02] VITALS: RESP 16; TEMP 98.4
[2022-04-18] MEDS ORDERED: SODIUM CHLORIDE 0.9% 1,000 ML IV STA (11:17)
[2022-04-18] MEDS ORDERED: ONDANSETRON 4 MG/2 ML VIAL IVP STA (11:17)
--- NOTE | 2022-04-18 11:17 | ED ---
Nausea/Vomiting/Diarrhea HPI - General Chief complaint: Nausea/Vomiting/Diarrhea Stated complaint: vomiting Time Seen by Provider: 04/18/22 11:07 Source: patient, RN notes reviewed Mode of arrival: wheelchair Limitations: no limitations - History of Present Illness Initial comments: Patient is a 61-year-old female presents to the emergency room with her spouse with complaints of nausea vomiting ongoing for approximately 3 days. She was seen in [place] emergency room whom completed blood work along with an EKG and x-ray of the abdomen. There are no significant anomalies found on imaging. She was diagnosed with GERD and sent home on Zofran for nausea along with Carafate. She is a past medical history significant for candidiasis of the esophagus diagnosed on biopsy by Dr. Eubanks in October of last year which she completed treatment for. She has also has a history of GERD with a [place] procedure. She is diabetic and reports that her blood sugars have been elevated recently. She has a past medical history significant for hypertension hyperlipidemia, CVA and asthma. She states that initially when she was vomiting she was having coffee-ground emesis but now her vomit has changed to saliva like dry heaves. She states that Zofran is not helping with her nausea and she is having trouble keeping food and drink down over the last 48 hours. She is complaining of pain in her left upper quadrant. She denies any exposure to influenza, COVID, or food products with possible E. coli exposure. She denies any fevers or chills. - Related Data Home Medications Medication Instructions Recorded Confirmed Albuterol Sulfate [Proair Hfa] 1 - 2 puff INHALATION RT-Q6H PRN 04/21/18 10/28/21 Ezetimibe [Zetia] 10 mg PO DAILY 04/21/18 10/28/21 Fluticasone/Salmeterol [Advair 2 puff INHALATION BID 04/21/18 10/28/21 250-50 Diskus] Loratadine [Claritin] 10 mg PO DAILY 04/21/18 10/28/21 Losartan-Hctz 50-12.5 mg [Hyzaar 1 tab PO QAM 04/21/18 10/28/21 50-12.5] Mometasone Furoate [Nasonex 50 mcg 1 - 2 spray EA NOSTRIL DAILY 04/21/18 10/28/21 Nasal [place]] Montelukast [Singulair] 10 mg PO HS 04/21/18 10/28/21 Sertraline [Zoloft] 100 mg PO DAILY 04/21/18 10/28/21 Tiotropium [place] [Spiriva] 1 cap INHALATION DAILY 04/21/18 10/28/21 metFORMIN HCL [Glucophage] 500 mg PO QAM 04/21/18 10/28/21 Alendronate Sodium [Fosamax] 70 mg PO MO 10/19/21 10/28/21 Aspirin 81 mg PO DAILY 10/19/21 10/28/21 Benralizumab [Fasenra] 30 mg SQ Q60D 10/19/21 10/28/21 Calcium Carbonate [Calcium] 1,200 mg PO DAILY 10/19/21 10/28/21 Multivitamins, Thera [Multivitamin 1 tab PO DAILY 10/19/21 10/28/21 (formulary)] amLODIPine [Norvasc] 2.5 mg PO HS 10/19/21 10/28/21 Previous Rx's Medication Instructions Recorded Omeprazole [PriLOSEC] 40 mg PO DAILY #14 cap 10/28/21 Ondansetron Odt [Zofran Odt] 8 mg PO Q8HR PRN 7 Days #21 tab 04/18/22 Allergies Allergy/AdvReac Type Severity Reaction Status Date / Time ciprofloxacin [From Cipro] Allergy Dyspnea Verified 04/18/22 11:00 metronidazole [From Flagyl] Allergy Dyspnea Verified 04/18/22 11:00 sulfamethoxazole Allergy Rash/Hives Verified 04/18/22 11:00 [From Bactrim] trimethoprim [From Bactrim] Allergy Rash/Hives Verified 04/18/22 11:00 codeine AdvReac Nausea & Verified 04/18/22 11:00 Vomiting Review of Systems ROS Statement: Those systems with pertinent positive or pertinent negative responses have been documented in the HPI. ROS Other: All systems not noted in ROS Statement are negative. Past Medical History Past Medical History: Asthma, CVA/TIA, Diabetes Mellitus, GERD/Reflux, Hyperlipidemia, Hypertension, Osteoarthritis (OA), Sleep Apnea/CPAP/BIPAP Additional Past Medical History / Comment(s): borderline sleep apnea-doesn't use anything for, current steroids-has been on for few months, & frequently for past year History of Any Multi-Drug Resistant Organisms: None Reported Past Surgical History: Section, Cholecystectomy, Orthopedic Surgery, Tonsillectomy, Tubal Ligation Additional Past Surgical History / Comment(s): C/S x2, arthroscopy left knee, EGD, HIATAL HERNIA REPAIR Past Anesthesia/Blood Transfusion Reactions: Motion Sickness, Postoperative Nausea & Vomiting (PONV) Past Psychological History: Anxiety, Depression Smoking Status: Never smoker - Past Family History Mother Family Medical History: Cancer General Exam Limitations: no limitations General appearance: alert, in no apparent distress Head exam: Present: atraumatic, normocephalic, normal inspection Eye exam: Present: normal appearance, PERRL, EOMI. Absent: scleral icterus, conjunctival injection, periorbital swelling ENT exam: Present: normal exam, mucous membranes moist Neck exam: Present: normal inspection, lymphadenopathy Respiratory exam: Present: normal lung sounds bilaterally. Absent: respiratory distress, wheezes, rales, rhonchi, stridor Cardiovascular Exam: Present: regular rate, normal rhythm, normal heart sounds. Absent: systolic murmur, diastolic murmur, rubs, gallop, clicks GI/Abdominal exam: Present: soft, tenderness (Mild left upper quadrant), normal bowel sounds. Absent: distended, rebound, rigid, organomegaly, mass Rectal exam: Present: deferred Extremities exam: Present: normal inspection. Absent: pedal edema, joint swelling Back exam: Absent: CVA tenderness (R), CVA tenderness (L) Neurological exam: Present: alert, oriented X3, CN II-XII intact Psychiatric exam: Present: normal affect, normal mood Skin exam: Present: warm, dry, intact, normal color. Absent: rash Course Vital Signs 04/18/22 11:00 Temperature 98.4 F Pulse Rate 76 Respiratory 16 Rate Blood Pressure 170/85 O2 Sat by Pulse 97 Oximetry Medical Decision Making - Medical Decision Making The setting of recent x-ray negative will check CT of the abdomen. Due to coffee-ground emesis will repeat hemoglobin. Will give gentle IV hydration and check electrolytes. If nausea remains intractable and poor oral intake may need observation and evaluation by GI. Lab work shows mild dehydration with a BUN of 26. Mild hypokalemia with potassium of 3.4. IV fluids and IV potassium given. Computed tomography scan of the abdomen and pelvis with contrast showed no significant abnormalities seen. Negative for influenza and COVID. Nausea stable without any emesis during stay. Tolerated IV fluids and IV potassium well. Patient's spouse agreeable for discharge and follow-up with Dr. Eubanks who is her specialist whom she follows with regarding her EGD needs. Return parameters including recurrence of hematemesis discussed at length. - Lab Data Result diagrams: 04/18/22 11:18 04/18/22 11:18 Lab Results 04/18/22 04/18/22 04/18/22 Range/Units 11:18 11:18 11:32 WBC 11.3 H (3.8-10.6) k/uL RBC 4.82 (3.80-5.40) m/uL Hgb 14.2 (11.4-16.0) gm/dL Hct 43.0 (34.0-46.0) % MCV 89.3 (80.0-100.0) fL MCH 29.6 (25.0-35.0) pg MCHC 33.1 (31.0-37.0) g/dL RDW 13.4 (11.5-15.5) % Plt Count 413 (150-450) k/uL MPV 8.0 Neutrophils % 86 % Lymphocytes % 9 % Monocytes % 3 % Eosinophils % 1 % Basophils % 0 % Neutrophils # 9.7 H (1.3-7.7) k/uL Lymphocytes # 1.0 (1.0-4.8) k/uL Monocytes # 0.4 (0-1.0) k/uL Eosinophils # 0.1 (0-0.7) k/uL Basophils # 0.0 (0-0.2) k/uL Sodium 139 (137-145) mmol/L Potassium 3.4 L (3.5-5.1) mmol/L Chloride 101 (98-107) mmol/L Carbon Dioxide 27 (22-30) mmol/L Anion Gap 11 mmol/L BUN 26 H (7-17) mg/dL Creatinine 0.62 (0.52-1.04) mg/dL Est GFR (CKD-EPI)AfAm >90 (>60 ml/min/1.73 sqM) Est GFR (CKD-EPI)NonAf >90 (>60 ml/min/1.73 sqM) Glucose 177 H (74-99) mg/dL Calcium 9.7 (8.4-10.2) mg/dL Total Bilirubin 0.6 (0.2-1.3) mg/dL AST 27 (14-36) U/L ALT 23 (4-34) U/L Alkaline Phosphatase 56 (38-126) U/L Total Protein 7.5 (6.3-8.2) g/dL Albumin 4.9 (3.5-5.0) g/dL Amylase 55 (30-110) U/L Lipase 38 (23-300) U/L Coronavirus (PCR) (Not Detectd) Influenza Type A RNA Not Detected (Not Detectd) Influenza Type B (PCR) Not Detected (Not Detectd) 04/18/22 Range/Units 13:24 WBC (3.8-10.6) k/uL RBC (3.80-5.40) m/uL Hgb (11.4-16.0) gm/dL Hct (34.0-46.0) % MCV (80.0-100.0) fL MCH (25.0-35.0) pg MCHC (31.0-37.0) g/dL RDW (11.5-15.5) % Plt Count (150-450) k/uL MPV Neutrophils % % Lymphocytes % % Monocytes % % Eosinophils % % Basophils % % Neutrophils # (1.3-7.7) k/uL Lymphocytes # (1.0-4.8) k/uL Monocytes # (0-1.0) k/uL Eosinophils # (0-0.7) k/uL Basophils # (0-0.2) k/uL Sodium (137-145) mmol/L Potassium (3.5-5.1) mmol/L Chloride (98-107) mmol/L Carbon Dioxide (22-30) mmol/L Anion Gap mmol/L BUN (7-17) mg/dL Creatinine (0.52-1.04) mg/dL Est GFR (CKD-EPI)AfAm (>60 ml/min/1.73 sqM) Est GFR (CKD-EPI)NonAf (>60 ml/min/1.73 sqM) Glucose (74-99) mg/dL Calcium (8.4-10.2) mg/dL Total Bilirubin (0.2-1.3) mg/dL AST (14-36) U/L ALT (4-34) U/L Alkaline Phosphatase (38-126) U/L Total Protein (6.3-8.2) g/dL Albumin (3.5-5.0) g/dL Amylase (30-110) U/L Lipase (23-300) U/L Coronavirus (PCR) Not Detected (Not Detectd) Influenza Type A RNA (Not Detectd) Influenza Type B (PCR) (Not Detectd) - Radiology Data Radiology results: report reviewed, image reviewed CT the abdomen and pelvis with contrast impression no significant abnormality seen Disposition Clinical Impression: Gastroenteritis, GERD (gastroesophageal reflux disease) Disposition: HOME SELF-CARE Condition: Stable Instructions (If sedation given, give patient instructions): Acute Nausea and Vomiting (ED) Additional Instructions: Continue home omeprazole dose. Utilize Zofran as needed for nausea. May discontinue Carafate. Return parameters discussed at length. Please return to the Emergency Department if symptoms worsen or any other concerns. Prescriptions: Ondansetron Odt [Zofran Odt] 8 mg PO Q8HR PRN 7 Days #21 tab PRN Reason: Nausea Is patient prescribed a controlled substance at d/c from ED?: No Referrals: Brendan Solis MD [Primary Care Provider] - 1-2 days Gabby Patel MD [STAFF PHYSICIAN] - As Soon As Possible Time of Disposition: 16:02
[2022-04-18 11:28] LABS: Basophils % (A) 0 %; Eosinophils # (A) 0.1 k/uL (0-0.7); Eosinophils % (A) 1 %; HGB 14.2 gm/dL (11.4-16.0); Lymphocytes % (A) 9 %; MCH 29.6 pg (25.0-35.0); MCHC 33.1 g/dL (31.0-37.0); MCV 89.3 fL (80.0-100.0); Monocytes # (A) 0.4 k/uL (0-1.0); Monocytes % (A) 3 %; Neutrophils # (A) 9.7 k/uL (1.3-7.7); Neutrophils % (A) 86 %; Platelet Count 413 k/uL (150-450); RBC 4.82 m/uL (3.80-5.40); RDW 13.4 % (11.5-15.5); WBC 11.3 k/uL (3.8-10.6)
[2022-04-18 11:43] LABS: ALT 23 U/L (4-34); AST 27 U/L (14-36); African American GFR (CKD) >90 (>60 ml/min/1.73 sqM); Albumin 4.9 g/dL (3.5-5.0); Alkaline Phosphatase 56 U/L (38-126); Amylase 55 U/L (30-110); Anion Gap 11 mmol/L; Blood Urea Nitrogen 26 mg/dL (7-17); Calcium 9.7 mg/dL (8.4-10.2); Carbon Dioxide 27 mmol/L (22-30); Chloride 101 mmol/L (98-107); Glucose 177 mg/dL (74-99); Lipase 38 U/L (23-300); Non-African American GFR(CKD) >90 (>60 ml/min/1.73 sqM); Potassium 3.4 mmol/L (3.5-5.1); Sodium 139 mmol/L (137-145); Total Bilirubin 0.6 mg/dL (0.2-1.3); Total Protein 7.5 g/dL (6.3-8.2)
[2022-04-18] MEDS ORDERED: POTASSIUM CHLORIDE 10 MEQ in WATER FOR INJECTION 1 100ML.BAG IVPB STA (12:19)
--- NOTE | 2022-04-18 12:40 | CT ---
EXAMINATION TYPE: CT abdomen pelvis w con DATE OF EXAM: 04/18/2022 COMPARISON: None HISTORY: Upper abdominal pain CT DLP: 681.5 mGycm Automated exposure control for dose reduction was used. TECHNIQUE: Helical acquisition of images was performed from the lung bases through the pelvis. CONTRAST: Performed without Oral Contrast and with IV Contrast, patient injected with 100 mL of Isovue 300. FINDINGS: Lung bases are clear. There are surgical absence of gallbladder. Multifocal well-circumscribed hypodensities in the liver likely representing simple cysts or possibly benign hemangiomas. There is no focal mass or organomegaly involving the pancreas, spleen or adrenal glands. The caliber of the abdominal aorta is normal and there is no retroperitoneal adenopathy or hemorrhage . The kidneys excrete contrast promptly and symmetrically and there is no calcification, hydronephrosis or solid renal mass. The bowel loops are normal in size and there is no obstruction. No inflammatory changes are identifie d in the mesentery or bowel wall. There is diverticulosis of the colon without CT evidence of diverti culitis. There is no free intraperitoneal air or fluid. There is no pelvic mass, free fluid, abscess or adenopathy. The osseous structures are intact. IMPRESSION: No significant abnormality seen.
[2022-04-18 16:10] VITALS: BP 126/74; PULSE 87
== END 2022-04-18 16:10 | disposition home or self-care (01) ==
LOC: EC 10:50
DX: K52.9 Noninfective gastroenteritis and colitis, unspecified (principal); K21.9 Gastro-esophageal reflux disease without esophagitis; E78.5 Hyperlipidemia, unspecified; E11.9 Type 2 diabetes mellitus without complications; I10 Essential (primary) hypertension; M19.90 Unspecified osteoarthritis, unspecified site; Z88.1 Allergy status to other antibiotic agents; Z88.5 Allergy status to narcotic agent; Z88.2 Allergy status to sulfonamides; Z79.899 Other long term (current) drug therapy; Z79.84 Long term (current) use of oral hypoglycemic drugs; Z79.51 Long term (current) use of inhaled steroids; Z79.82 Long term (current) use of aspirin; Z20.822 Contact with and (suspected) exposure to COVID-19
CPT/HCPCS: 36415; 80053; 82150; 83690; 85025; 87502; 87635; 74177; 99284; 96365; 96375; 96361; J2405; J3480; Q9967

== ENCOUNTER 2022-04-19 13:32 | Inpatient (IN) | payer BC ==
[2022-04-19] MEDS ORDERED: METOCLOPRAMIDE 5 MG/ML 2 ML VIAL IVP STA (16:40)
[2022-04-19] MEDS ORDERED: SODIUM CHLORIDE 0.9% 1,000 ML IV STA (16:40)
[2022-04-19 17:11] LABS: ALT 46 U/L (4-34); AST 43 U/L (14-36); African American GFR (CKD) >90 (>60 ml/min/1.73 sqM); Albumin 4.9 g/dL (3.5-5.0); Alkaline Phosphatase 59 U/L (38-126); Amylase 62 U/L (30-110); Anion Gap 9 mmol/L; Blood Urea Nitrogen 26 mg/dL (7-17); Calcium 9.9 mg/dL (8.4-10.2); Carbon Dioxide 30 mmol/L (22-30); Chloride 99 mmol/L (98-107); Glucose 127 mg/dL (74-99); Lipase 45 U/L (23-300); Non-African American GFR(CKD) >90 (>60 ml/min/1.73 sqM); Potassium 3.1 mmol/L (3.5-5.1); Sodium 138 mmol/L (137-145); Total Bilirubin 0.7 mg/dL (0.2-1.3); Total Protein 7.7 g/dL (6.3-8.2)
[2022-04-19 17:21] LABS: Basophils % (A) 0 %; Eosinophils % (A) 0 %; HCT 42.9 % (34.0-46.0); HGB 14.4 gm/dL (11.4-16.0); Lymphocytes # (A) 1.3 k/uL (1.0-4.8); Lymphocytes % (A) 14 %; MCH 30.1 pg (25.0-35.0); MCHC 33.7 g/dL (31.0-37.0); MCV 89.5 fL (80.0-100.0); Mean Platelet Volume 8.8; Monocytes # (A) 0.6 k/uL (0-1.0); Monocytes % (A) 7 %; Neutrophils # (A) 7.3 k/uL (1.3-7.7); Neutrophils % (A) 78 %; Platelet Count 343 k/uL (150-450); RBC 4.79 m/uL (3.80-5.40); RDW 13.4 % (11.5-15.5); WBC 9.3 k/uL (3.8-10.6)
[2022-04-19] MEDS ORDERED: Potassium Replacement Protocol 1 EACH MISC MISCELLANE PRN ×2 (17:30→19:05)
[2022-04-19 18:31] LABS: Appearance,Urine Clear (Clear); Bilirubin,Urine Negative (Negative); Blood,Urine Negative (Negative); Color,Urine Yellow; Glucose,Urine (UA) Negative (Negative); Ketones,Urine 2+ (Negative); Leukocyte Esterase,Urine Negative (Negative); Nitrite,Urine Negative (Negative); PH, Urine 7.5 (5.0-8.0); Protein,Urine Negative (Negative); Specific Gravity,Urine 1.017 (1.001-1.035); Urobilinogen,Urine <2.0 mg/dL (<2.0)
[2022-04-19] MEDS: POTASSIUM CHLORIDE ER 20 MEQ TAB.ER PO SCH ×3 (18:46→19:15)
--- NOTE | 2022-04-19 19:08 | ED ---
General Adult HPI - General Chief complaint: Abdominal Pain Stated complaint: revisit - vomiting, dehydrated Time Seen by Provider: 04/19/22 16:08 Source: patient Mode of arrival: ambulatory Limitations: no limitations - History of Present Illness Initial comments: She is a 61-year-old female presenting with chief complaint of nausea and vomiting. Patient states that this has been ongoing for the last 3 days. She was seen in the emergency room yesterday, she received a negative abdominal CT and improved with Zofran. Today she tried taking the Zofran that was prescribed, and her symptoms persisted. She is unable to tolerate foods and fluids at home. She is a patient of Dr. Eubanks's, she received a biopsy of the esophagus last year which revealed candidiasis, she completed treatment for this. Patient also has a known history of diabetes. Surgical history includes cholecystectomy. Patient states that her vomit has been very watery today. Patient states that outside of some upper abdominal soreness after vomiting, she does not have any abdominal pain. She has not had a bowel movement over the last 3 days. She denies any hematemesis. Denies chest pain, shortness of breath, lightheadedness, weakness, fever, chills, hematochezia, melena, dysuria, hematuria, urgency, frequency, dysphasia, odynophagia. - Related Data Home Medications Medication Instructions Recorded Confirmed Albuterol Sulfate [Proair Hfa] 1 - 2 puff INHALATION RT-Q6H PRN 04/21/18 04/19/22 Ezetimibe [Zetia] 10 mg PO DAILY 04/21/18 04/19/22 Losartan-Hctz 50-12.5 mg [Hyzaar 1 tab PO DAILY 04/21/18 04/19/22 50-12.5] Montelukast [Singulair] 10 mg PO HS 04/21/18 04/19/22 Sertraline [Zoloft] 100 mg PO DAILY 04/21/18 04/19/22 Tiotropium [place] [Spiriva] 1 cap INHALATION RT-DAILY 04/21/18 04/19/22 Alendronate Sodium [Fosamax] 70 mg PO MO 10/19/21 04/19/22 Benralizumab [Fasenra] 30 mg SQ Q56D 10/19/21 04/19/22 Calcium Carbonate [Calcium] 600 mg PO DAILY 10/19/21 04/19/22 Multivitamins, Thera [Multivitamin 1 tab PO DAILY 10/19/21 04/19/22 (formulary)] amLODIPine [Norvasc] 2.5 mg PO DAILY 10/19/21 04/19/22 Black Cohosh Root [Black Cohosh] 200 mg PO DAILY 04/19/22 04/19/22 EPINEPHrine (Auto Inject) [Epipen] 0.3 mg IM ONCE PRN 04/19/22 04/19/22 Fluticasone Nasal [place] [Flonase 2 spray EA NOSTRIL DAILY 04/19/22 04/19/22 Nasal [place]] Omeprazole [PriLOSEC] 40 mg PO DAILY PRN 04/19/22 04/19/22 metFORMIN HCL ER [Glucophage XR] 500 mg PO DAILY 04/19/22 04/19/22 Previous Rx's Medication Instructions Recorded Ondansetron Odt [Zofran Odt] 8 mg PO Q8HR PRN 7 Days #21 tab 04/18/22 Allergies Allergy/AdvReac Type Severity Reaction Status Date / Time ciprofloxacin [From Cipro] Allergy Dyspnea Verified 04/19/22 19:27 metronidazole [From Flagyl] Allergy Dyspnea Verified 04/19/22 19:27 sulfamethoxazole Allergy Rash/Hives Verified 04/19/22 19:27 [From Bactrim] trimethoprim [From Bactrim] Allergy Rash/Hives Verified 04/19/22 19:27 codeine AdvReac Nausea & Verified 04/19/22 19:27 Vomiting Review of Systems ROS Statement: Those systems with pertinent positive or pertinent negative responses have been documented in the HPI. ROS Other: All systems not noted in ROS Statement are negative. Past Medical History Past Medical History: Asthma, CVA/TIA, Diabetes Mellitus, GERD/Reflux, Hyperlipidemia, Hypertension, Osteoarthritis (OA), Sleep Apnea/CPAP/BIPAP Additional Past Medical History / Comment(s): borderline sleep apnea-doesn't use anything for, current steroids-has been on for few months, & frequently for past year History of Any Multi-Drug Resistant Organisms: None Reported Past Surgical History: Section, Cholecystectomy, Orthopedic Surgery, Tonsillectomy, Tubal Ligation Additional Past Surgical History / Comment(s): C/S x2, arthroscopy left knee, EGD, HIATAL HERNIA REPAIR Past Anesthesia/Blood Transfusion Reactions: Motion Sickness, Postoperative Nausea & Vomiting (PONV) Past Psychological History: Anxiety, Depression Smoking Status: Never smoker - Past Family History Mother Family Medical History: Cancer General Exam Limitations: no limitations General appearance: alert, in no apparent distress Head exam: Present: atraumatic, normocephalic, normal inspection Eye exam: Present: normal appearance, EOMI. Absent: scleral icterus Neck exam: Present: normal inspection Respiratory exam: Present: normal lung sounds bilaterally. Absent: respiratory distress, wheezes, rales, rhonchi, stridor Cardiovascular Exam: Present: regular rate, normal rhythm, normal heart sounds. Absent: systolic murmur, diastolic murmur, rubs, gallop, clicks GI/Abdominal exam: Present: soft, diminished bowel sounds. Absent: distended, tenderness, guarding, rebound, rigid Neurological exam: Present: alert, oriented X3, CN II-XII intact Psychiatric exam: Present: normal affect, normal mood Skin exam: Present: warm, dry, intact, normal color. Absent: rash Course Vital Signs 04/19/22 04/19/22 15:04 20:48 Temperature 98.4 F Pulse Rate 66 80 Respiratory 18 16 Rate Blood Pressure 153/87 122/70 O2 Sat by Pulse 99 98 Oximetry EKG Findings - EKG Comments: EKG Findings:: Sinus rhythm with occasional ventricular premature complexes. Rate of 75. TN interval 174. QRS duration 106. No acute ST or T-wave changes. Medical Decision Making - Medical Decision Making Patient is a 61-year-old female presenting with chief complaint of nausea and vomiting. Patient was seen here yesterday for the same complaint, she was found to be hypokalemic and was given potassium replacement, CT of the abdomen and pelvis showed no acute abnormality. She was discharged home. Today she was trying to take the Zofran prescribed to her at this previous visit and it did not help her symptoms. Patient has been unable to tolerate foods or fluids. On assessment today she has some mild soreness of the upper abdomen, likely from retching. Repeat labs show that hypokalemia has worsened to 3.1, she will receive potassium repletion. BUN is elevated at 26, this is likely due to dehydration. Urine ketones 2+, also likely due to dehydration. Patient would benefit from observation and symptomatic management. I spoke with Dr. Laguna who agreed to admit the patient. Patient conveyed verbal understanding and agreed to the plan. I discussed this case with my attending Dr. Barrera. - Lab Data Result diagrams: 04/19/22 16:30 04/19/22 16:30 Lab Results 04/19/22 04/19/22 04/19/22 Range/Units 16:30 16:30 16:30 WBC 9.3 (3.8-10.6) k/uL RBC 4.79 (3.80-5.40) m/uL Hgb 14.4 (11.4-16.0) gm/dL Hct 42.9 (34.0-46.0) % MCV 89.5 (80.0-100.0) fL MCH 30.1 (25.0-35.0) pg MCHC 33.7 (31.0-37.0) g/dL RDW 13.4 (11.5-15.5) % Plt Count 343 (150-450) k/uL MPV 8.8 Neutrophils % 78 % Lymphocytes % 14 % Monocytes % 7 % Eosinophils % 0 % Basophils % 0 % Neutrophils # 7.3 (1.3-7.7) k/uL Lymphocytes # 1.3 (1.0-4.8) k/uL Monocytes # 0.6 (0-1.0) k/uL Eosinophils # 0.0 (0-0.7) k/uL Basophils # 0.0 (0-0.2) k/uL Sodium 138 (137-145) mmol/L Potassium 3.1 L (3.5-5.1) mmol/L Chloride 99 (98-107) mmol/L Carbon Dioxide 30 (22-30) mmol/L Anion Gap 9 mmol/L BUN 26 H (7-17) mg/dL Creatinine 0.63 (0.52-1.04) mg/dL Est GFR (CKD-EPI)AfAm >90 (>60 ml/min/1.73 sqM) Est GFR (CKD-EPI)NonAf >90 (>60 ml/min/1.73 sqM) Glucose 127 H (74-99) mg/dL Plasma Lactic Acid [place] 0.9 (0.7-2.0) mmol/L Calcium 9.9 (8.4-10.2) mg/dL Total Bilirubin 0.7 (0.2-1.3) mg/dL AST 43 H (14-36) U/L ALT 46 H (4-34) U/L Alkaline Phosphatase 59 (38-126) U/L Troponin I (0.000-0.034) ng/mL Total Protein 7.7 (6.3-8.2) g/dL Albumin 4.9 (3.5-5.0) g/dL Amylase 62 (30-110) U/L Lipase 45 (23-300) U/L Urine Color Urine Appearance (Clear) Urine pH (5.0-8.0) Ur Specific [place] (1.001-1.035) Urine Protein (Negative) Urine Glucose (UA) (Negative) Urine Ketones (Negative) Urine Blood (Negative) Urine Nitrite (Negative) Urine Bilirubin (Negative) Urine Urobilinogen (<2.0) mg/dL Ur Leukocyte Esterase (Negative) 04/19/22 04/19/22 Range/Units 16:30 18:00 WBC (3.8-10.6) k/uL RBC (3.80-5.40) m/uL Hgb (11.4-16.0) gm/dL Hct (34.0-46.0) % MCV (80.0-100.0) fL MCH (25.0-35.0) pg MCHC (31.0-37.0) g/dL RDW (11.5-15.5) % Plt Count (150-450) k/uL MPV Neutrophils % % Lymphocytes % % Monocytes % % Eosinophils % % Basophils % % Neutrophils # (1.3-7.7) k/uL Lymphocytes # (1.0-4.8) k/uL Monocytes # (0-1.0) k/uL Eosinophils # (0-0.7) k/uL Basophils # (0-0.2) k/uL Sodium (137-145) mmol/L Potassium (3.5-5.1) mmol/L Chloride (98-107) mmol/L Carbon Dioxide (22-30) mmol/L Anion Gap mmol/L BUN (7-17) mg/dL Creatinine (0.52-1.04) mg/dL Est GFR (CKD-EPI)AfAm (>60 ml/min/1.73 sqM) Est GFR (CKD-EPI)NonAf (>60 ml/min/1.73 sqM) Glucose (74-99) mg/dL Plasma Lactic Acid [place] (0.7-2.0) mmol/L Calcium (8.4-10.2) mg/dL Total Bilirubin (0.2-1.3) mg/dL AST (14-36) U/L ALT (4-34) U/L Alkaline Phosphatase (38-126) U/L Troponin I <0.012 (0.000-0.034) ng/mL Total Protein (6.3-8.2) g/dL Albumin (3.5-5.0) g/dL Amylase (30-110) U/L Lipase (23-300) U/L Urine Color Yellow Urine Appearance Clear (Clear) Urine pH 7.5 (5.0-8.0) Ur Specific [place] 1.017 (1.001-1.035) Urine Protein Negative (Negative) Urine Glucose (UA) Negative (Negative) Urine Ketones 2+ H (Negative) Urine Blood Negative (Negative) Urine Nitrite Negative (Negative) Urine Bilirubin Negative (Negative) Urine Urobilinogen <2.0 (<2.0) mg/dL Ur Leukocyte Esterase Negative (Negative) Disposition Clinical Impression: Intractable nausea and vomiting Disposition: ADMITTED IP TO THIS [facility] Condition: Good Time of Disposition: 19:07 Decision to Admit Reason: Admit from EC Decision Date: 04/19/22 Decision Time: 19:07
[2022-04-19] MEDS: SODIUM CHLORIDE 0.9% 1,000 ML IV SCH (19:49)
[2022-04-19] MEDS: POTASSIUM CHLORIDE 10 MEQ in WATER FOR INJECTION 1 100ML.BAG IVPB SCH ×2 (19:50→23:11)
[2022-04-19] MEDS ORDERED: NALOXONE 0.4 MG/ML 1 ML VIAL IV PRN (20:07)
[2022-04-19] MEDS ORDERED: ONDANSETRON 4 MG/2 ML VIAL IVP PRN (20:07)
[2022-04-20] MEDS: POTASSIUM CHLORIDE 10 MEQ in WATER FOR INJECTION 1 100ML.BAG IVPB SCH ×2 (00:37→02:05)
--- NOTE | 2022-04-20 01:21 | P.HPIM ---
History of Present Illness H&P Date: 04/19/22 Patient is a 60-year-old female with a PMH of type II DM, hypertension, COPD who presents to the emergency room with complaints of intractable nausea and vomiting. Patient reports her symptoms started about 3-4 days ago, at which time she went to an emergency room in [facility], where she underwent a CT abdomen which was unremarkable and was given Zofran prescription and was discharged home. She reports however that her symptoms persisted, and that she was unable to tolerate any food, including liquids. She reports to me episodes of vomiting to count, with occasional coffee ground and small amounts of blood. She did report mild aching abdominal discomfort shortly after vomiting. She reports not having a bowel movement during this time. The patient does have a history of cholecystectomy as well as candidal esophagitis which was treated last year. Denies melena or bright red blood per rectum. Also denies fever, chills, cough, chest pain, shortness of breath. Laboratory evaluation was remarkable for potassium of 3.1, AST 43, ALT 46, and lactic acid 0.9. Review of systems: Pertinent positives and negatives as discussed in HPI, a complete review of systems was performed and all other systems are negative. Physical examination: General: non toxic, no distress, appears at stated age, overweight Derm: no unusual rashes/lesions, warm Head: atraumatic, normocephalic, symmetric Eyes: EOMI, no lid lag, anicteric sclera, pupils equal round reactive to light ENT: Nose and ears atraumatic Neck: No cervical lymphadenopathy, trachea midline, supple Mouth: no lip lesion, mucus membranes moist Cardiovascular: S1S2 reg, no murmur, positive dorsalis pedis pulse bilateral, no edema Lungs: CTA bilateral, no rhonchi, no rales, no accessory muscle use Abdominal: soft, nontender to palpation, no guarding Ext: muscle strength 5 out of 5 in all 4 extremities grossly, no gross muscle atrophy, no contractures, Neuro: CN II-XI grossly intact, no gross focal neuro deficits Psych: Alert, oriented, appropriate affect Assessment/plan Intractable nausea and vomiting with coffee ground emesis -Suspect viral gastroenteritis -Continue with conservative management with IV fluids and antiemetics -Clear liquid diet -Monitor CBC -GI consult Hypokalemia -Replace and monitor Chronic conditions: Type II DM, hypertension, COPD -Continue with home meds -Insulin sliding scale and blood glucose monitoring DVT prophylaxis -IPCDs The patient is admitted with an anticipated less than 2 midnight stay for evaluation of nausea, vomiting CODE STATUS: Full Code Discussed with: Patient Anticipated discharge date: in am Anticipated discharge place: Home Past Medical History Past Medical History: Asthma, CVA/TIA, Diabetes Mellitus, GERD/Reflux, Hyperli pidemia, Hypertension, Osteoarthritis (OA) Additional Past Medical History / Comment(s): borderline sleep apnea-doesn't use anything for, current steroids-has been on for few months, & frequently for past year History of Any Multi-Drug Resistant Organisms: None Reported Past Surgical History: Section, Cholecystectomy, Orthopedic Surgery, Tonsillectomy, Tubal Ligation Additional Past Surgical History / Comment(s): C/S x2, arthroscopy left knee, EGD, HIATAL HERNIA REPAIR Past Anesthesia/Blood Transfusion Reactions: Motion Sickness, Postoperative Nausea & Vomiting (PONV) Past Psychological History: Anxiety, Depression Smoking Status: Never smoker Past Alcohol Use History: None Reported Past Drug Use History: None Reported - Past Family History Mother Family Medical History: Cancer Medications and Allergies Home Medications Medication Instructions Recorded Confirmed Type Albuterol Sulfate [Proair Hfa] 1 - 2 puff INHALATION RT-Q6H PRN 04/21/1804/19 History Ezetimibe [Zetia] 10 mg PO DAILY 04/21/18 04/19/22 History Losartan-Hctz 50-12.5 mg [Hyzaar 1 tab PO DAILY 04/21/18 04/19/22 History 50-12.5] Montelukast [Singulair] 10 mg PO HS 04/21/18 04/19/22 History Sertraline [Zoloft] 100 mg PO DAILY 04/21/18 04/19/22 History Tiotropium [place] [Spiriva] 1 cap INHALATION RT-DAILY 04/21/18 04/19/22 History Alendronate Sodium [Fosamax] 70 mg PO MO 10/19/21 04/19/22 History Benralizumab [Fasenra] 30 mg SQ Q56D 10/19/21 04/19/22 History Calcium Carbonate [Calcium] 600 mg PO DAILY 10/19/21 04/19/22 History Multivitamins, Thera [Multivitamin 1 tab PO DAILY 10/19/21 04/19/22 History (formulary)] amLODIPine [Norvasc] 2.5 mg PO DAILY 10/19/21 04/19/22 History Ondansetron Odt [Zofran Odt] 8 mg PO Q8HR PRN 7 Days #21 tab 04/18/22 04/19/22 Rx Black Cohosh Root [Black Cohosh] 200 mg PO DAILY 04/19/22 04/19/22 History EPINEPHrine (Auto Inject) [Epipen] 0.3 mg IM ONCE PRN 04/19/22 04/19/22 History Fluticasone Nasal [place] [Flonase 2 spray EA NOSTRIL DAILY 04/19/22 04/19/22 History Nasal [place]] Omeprazole [PriLOSEC] 40 mg PO DAILY PRN 04/19/22 04/19/22 History metFORMIN HCL ER [Glucophage XR] 500 mg PO DAILY 04/19/22 04/19/22 History Allergies Allergy/AdvReac Type Severity Reaction Status Date / Time ciprofloxacin [From Cipro] Allergy Dyspnea Verified 04/19/22 19:27 metronidazole [From Flagyl] Allergy Dyspnea Verified 04/19/22 19:27 sulfamethoxazole Allergy Rash/Hives Verified 04/19/22 19:27 [From Bactrim] trimethoprim [From Bactrim] Allergy Rash/Hives Verified 04/19/22 19:27 codeine AdvReac Nausea & Verified 04/19/22 19:27 Vomiting Physical Exam Vitals: Vital Signs Temp Pulse Pulse Resp BP BP Pulse Ox 04/19/22 22:15 98.4 F 59 L 16 144/76 98 04/19/22 20:48 80 16 122/70 98 04/19/22 15:04 98.4 F 66 18 153/87 99 Intake and Output 04/19/22 04/19/22 04/20/22 14:59 22:59 06:59 Other: # Voids 1 Weight 63.957 kg Results CBC & Chem 7: 04/19/22 16:30 04/19/22 16:30 Labs: Abnormal Lab Results - Last 24 Hours (Table) 04/19/22 04/19/22 Range/Units 16:30 18:00 Potassium 3.1 L (3.5-5.1) mmol/L BUN 26 H (7-17) mg/dL Glucose 127 H (74-99) mg/dL AST 43 H (14-36) U/L ALT 46 H (4-34) U/L Urine Ketones 2+ H (Negative) Thrombosis Risk Factor Assmnt - Choose All That Apply Each Risk Factor Represents 2 Points: Age 61-74 years Thrombosis Risk Factor Assessment Total Risk Factor Score: 2 Thrombosis Risk Factor Assessment Level: Low Risk
[2022-04-20] MEDS ORDERED: PANTOPRAZOLE 40 MG/10 ML VIAL IVP ONE (04:35)
[2022-04-20 06:54] LABS: Glucose,Whole Blood 102 mg/dL (75-99)
[2022-04-20] MEDS: IPRATROPIUM 0.5 MG/2.5 ML NEBU INHALATION SCH ×4 (07:22→20:02)
[2022-04-20] MEDS: INSULIN ASPART (NovoLOG) 100 UNIT/ML VIAL SQ SCH ×4 (07:50→21:48)
[2022-04-20] MEDS ORDERED: HEPARIN SODIUM,PORCINE/PF 5,000 UNIT/0.5 ML SYRINGE SQ SCH (08:00)
--- NOTE | 2022-04-20 08:44 | P.GSCN ---
History of Present Illness Consult date: 04/20/22 History of present illness: Patient seen and evaluated. She was scheduled to see me in the office today. She reports nausea and vomiting improved today. She had brief hematemsis prior. Plan for EGD for tomorrow. Past Medical History Past Medical History: Asthma, CVA/TIA, Diabetes Mellitus, GERD/Reflux, Hyperlipidemia, Hypertension, Osteoarthritis (OA) Additional Past Medical History / Comment(s): borderline sleep apnea-doesn't use anything for, current steroids-has been on for few months, & frequently for past year History of Any Multi-Drug Resistant Organisms: None Reported Past Surgical History: Section, Cholecystectomy, Orthopedic Surgery, Tonsillectomy, Tubal Ligation Additional Past Surgical History / Comment(s): C/S x2, arthroscopy left knee, EGD, HIATAL HERNIA REPAIR Past Anesthesia/Blood Transfusion Reactions: Motion Sickness, Postoperative Nausea & Vomiting (PONV) Past Psychological History: Anxiety, Depression Smoking Status: Never smoker Past Alcohol Use History: None Reported Past Drug Use History: None Reported - Past Family History Mother Family Medical History: Cancer Medications and Allergies Home Medications Medication Instructions Recorded Confirmed Type Albuterol Sulfate [Proair Hfa] 1 - 2 puff INHALATION RT-Q6H PRN 04/21/18 04/19/22 History Ezetimibe [Zetia] 10 mg PO DAILY 04/21/18 04/19/22 History Losartan-Hctz 50-12.5 mg [Hyzaar 1 tab PO DAILY 04/21/18 04/19/22 History 50-12.5] Montelukast [Singulair] 10 mg PO HS 04/21/18 04/19/22 History Sertraline [Zoloft] 100 mg PO DAILY 04/21/18 04/19/22 History Tiotropium [place] [Spiriva] 1 cap INHALATION RT-DAILY 04/21/18 04/19/22 History Alendronate Sodium [Fosamax] 70 mg PO MO 10/19/21 04/19/22 History Benralizumab [Fasenra] 30 mg SQ Q56D 10/19/21 04/19/22 History Calcium Carbonate [Calcium] 600 mg PO DAILY 10/19/21 04/19/22 History Multivitamins, Thera [Multivitamin 1 tab PO DAILY 10/19/21 04/19/22 History (formulary)] amLODIPine [Norvasc] 2.5 mg PO DAILY 10/19/21 04/19/22 History Ondansetron Odt [Zofran Odt] 8 mg PO Q8HR PRN 7 Days #21 tab 04/18/22 04/19/22 Rx Black Cohosh Root [Black Cohosh] 200 mg PO DAILY 04/19/22 04/19/22 History EPINEPHrine (Auto Inject) [Epipen] 0.3 mg IM ONCE PRN 04/19/22 04/19/22 History Fluticasone Nasal [place] [Flonase 2 spray EA NOSTRIL DAILY 04/19/22 04/19/22 History Nasal [place]] Omeprazole [PriLOSEC] 40 mg PO DAILY PRN 04/19/22 04/19/22 History metFORMIN HCL ER [Glucophage XR] 500 mg PO DAILY 04/19/22 04/19/22 History Allergies Allergy/AdvReac Type Severity Reaction Status Date / Time ciprofloxacin [From Cipro] Allergy Dyspnea Verified 04/19/22 19:27 metronidazole [From Flagyl] Allergy Dyspnea Verified 04/19/22 19:27 sulfamethoxazole Allergy Rash/Hives Verified 04/19/22 19:27 [From Bactrim] trimethoprim [From Bactrim] Allergy Rash/Hives Verified 04/19/22 19:27 codeine AdvReac Nausea & Verified 04/19/22 19:27 Vomiting Surgical - Exam Vital Signs Temp Pulse Resp BP Pulse Ox 98.4 F 66 18 153/87 99 04/19/22 15:04 04/19/22 15:04 04/19/22 15:04 04/19/22 15:04 04/19/22 15:04 Results - Labs 04/19/22 16:30 04/19/22 16:30 Abnormal Lab Results - Last 24 Hours (Table) 04/19/22 04/19/22 04/20/22 Range/Units 16:30 18:00 06:52 Potassium 3.1 L (3.5-5.1) mmol/L BUN 26 H (7-17) mg/dL Glucose 127 H (74-99) mg/dL POC Glucose (mg/dL) 102 H (75-99) mg/dL AST 43 H (14-36) U/L ALT 46 H (4-34) U/L Urine Ketones 2+ H (Negative) Diabetes panel 04/19/22 Range/Units 16:30 Sodium 138 (137-145) mmol/L Potassium 3.1 L (3.5-5.1) mmol/L Chloride 99 (98-107) mmol/L Carbon Dioxide 30 (22-30) mmol/L BUN 26 H (7-17) mg/dL Creatinine 0.63 (0.52-1.04) mg/dL Glucose 127 H (74-99) mg/dL Calcium 9.9 (8.4-10.2) mg/dL AST 43 H (14-36) U/L ALT 46 H (4-34) U/L Alkaline Phosphatase 59 (38-126) U/L Total Protein 7.7 (6.3-8.2) g/dL Albumin 4.9 (3.5-5.0) g/dL Calcium panel 04/19/22 Range/Units 16:30 Calcium 9.9 (8.4-10.2) mg/dL Albumin 4.9 (3.5-5.0) g/dL Pituitary panel 04/19/22 Range/Units 16:30 Sodium 138 (137-145) mmol/L Potassium 3.1 L (3.5-5.1) mmol/L Chloride 99 (98-107) mmol/L Carbon Dioxide 30 (22-30) mmol/L BUN 26 H (7-17) mg/dL Creatinine 0.63 (0.52-1.04) mg/dL Glucose 127 H (74-99) mg/dL Calcium 9.9 (8.4-10.2) mg/dL Adrenal panel 04/19/22 Range/Units 16:30 Sodium 138 (137-145) mmol/L Potassium 3.1 L (3.5-5.1) mmol/L Chloride 99 (98-107) mmol/L Carbon Dioxide 30 (22-30) mmol/L BUN 26 H (7-17) mg/dL Creatinine 0.63 (0.52-1.04) mg/dL Glucose 127 H (74-99) mg/dL Calcium 9.9 (8.4-10.2) mg/dL Total Bilirubin 0.7 (0.2-1.3) mg/dL AST 43 H (14-36) U/L ALT 46 H (4-34) U/L Alkaline Phosphatase 59 (38-126) U/L Total Protein 7.7 (6.3-8.2) g/dL Albumin 4.9 (3.5-5.0) g/dL
[2022-04-20 10:29] LABS: Basophils # (A) 0.02 X 10*3/uL (0.00-0.10); Basophils % (A) 0.3 %; Eosinophils # (A) 0 X 10*3/uL (0.04-0.35); Eosinophils % (A) 0 %; HCT 37.1 % (37.2-46.3); HGB 12.1 g/dL (12.0-15.0); Immature Grans, Automated 0.4 %; Lymphocytes # (A) 1.46 X 10*3/uL (0.90-5.00); Lymphocytes % (A) 19.1 %; MCH 28.9 pg (27.0-32.0); MCHC 32.6 g/dL (32.0-37.0); MCV 88.5 fL (80.0-97.0); Mean Platelet Volume 11.3 fL (9.5-12.2); Monocytes # (A) 0.75 X 10*3/uL (0.20-1.00); Monocytes % (A) 9.8 %; NRBC Per 100 WBC 0 /100 WBCS (0.0-0.0); Neutrophils # (A) 5.38 X 10*3/uL (1.80-7.70); Neutrophils % (A) 70.4 %; Platelet Count 276 X 10*3/uL (140-440); RBC 4.19 X 10*6/uL (4.10-5.20); RDW 12.7 % (11.5-14.5); WBC 7.64 X 10*3/uL (4.50-10.00)
[2022-04-20 10:40] LABS: African American GFR (CKD) 112.4 (60.0-200.0); Albumin/Globulin Ratio 2.35 (1.60-3.17); Anion Gap 8.7 mmol/L (10.00-18.00); BUN/Creat Ratio 36.33 Ratio (12.00-20.00); Blood Urea Nitrogen 21.8 mg/dL (9.0-27.0); Calcium 8.8 mg/dL (8.7-10.3); Carbon Dioxide 25.3 mmol/L (20.0-27.5); Globulin 1.7 g/dL (1.6-3.3); Potassium 3.6 mmol/L (3.5-5.5); Total Bilirubin 0.7 mg/dL (0.30-1.20); Total Protein 5.7 g/dL (6.2-8.2)
[2022-04-20] MEDS: EZETIMIBE 10 MG TAB PO SCH (10:48)
[2022-04-20] MEDS: MULTIVITAMINS, THERA 1 EACH TAB PO SCH (10:48)
[2022-04-20] MEDS: amLODIPine 2.5 MG TAB PO SCH (10:48)
[2022-04-20] MEDS: SERTRALINE 100 MG TAB PO SCH (10:48)
[2022-04-20] MEDS: SODIUM CHLORIDE 0.9% 1,000 ML IV SCH ×2 (10:51→21:49)
[2022-04-20 11:06] VITALS: BMI 26.6
[2022-04-20 12:07] LABS: Glucose,Whole Blood 116 mg/dL (75-99)
[2022-04-20] MEDS: PANTOPRAZOLE 40 MG/10 ML VIAL IVP SCH (15:56)
--- NOTE | 2022-04-20 16:30 | P.PN ---
Subjective Patient was examined at bedside today denies any intractable nausea or vomiting. Patient spoke with consulting team recommending EGD which is scheduled for tomorrow communicated to the patient and family present at bedside. Objective - Vital Signs Vital signs: Vital Signs Temp 98.4 F 04/20/22 13:49 Pulse 74 04/20/22 13:49 Resp 16 04/20/22 14:00 BP 134/69 04/20/22 13:49 Pulse Ox 98 04/20/22 13:49 FiO2 Intake & Output 04/19/22 04/20/22 04/20/22 18:59 06:59 18:59 Intake Total 236 Balance 236 Weight 63.957 kg 63.957 kg 63.957 kg Intake: Oral 236 Other: # Voids 1 2 - Exam Physical examination: General: non toxic, no distress, appears at stated age, overweight Derm: no unusual rashes/lesions, warm Head: atraumatic, normocephalic, symmetric Eyes: EOMI, no lid lag, anicteric sclera, pupils equal round reactive to light ENT: Nose and ears atraumatic Neck: No cervical lymphadenopathy, trachea midline, supple Mouth: no lip lesion, mucus membranes moist Cardiovascular: S1S2 reg, no murmur, positive dorsalis pedis pulse bilateral, no edema Lungs: CTA bilateral, no rhonchi, no rales, no accessory muscle use Abdominal: soft, nontender to palpation, no guarding Ext: muscle strength 5 out of 5 in all 4 extremities grossly, no gross muscle atrophy, no contractures, Neuro: CN II-XI grossly intact, no gross focal neuro deficits Psych: Alert, oriented, appropriate affect - Labs CBC & Chem 7: 04/20/22 07:02 04/20/22 07:02 Labs: Abnormal Lab Results - Last 24 Hours (Table) 04/19/22 04/19/22 04/20/22 Range/Units 16:30 18:00 06:52 Hct (37.2-46.3) % Eosinophils # (0.04-0.35) X 10*3/uL Potassium 3.1 L (3.5-5.1) mmol/L Anion Gap (10.00-18.00) mmol/L BUN 26 H (7-17) mg/dL BUN/Creatinine Ratio (12.00-20.00) Ratio Glucose 127 H (74-99) mg/dL POC Glucose (mg/dL) 102 H (75-99) mg/dL AST 43 H (14-36) U/L ALT 46 H (4-34) U/L Total Protein (6.2-8.2) g/dL Urine Ketones 2+ H (Negative) 04/20/22 04/20/22 04/20/22 Range/Units 07:02 07:02 12:05 Hct 37.1 L (37.2-46.3) % Eosinophils # 0 L (0.04-0.35) X 10*3/uL Potassium (3.5-5.1) mmol/L Anion Gap 8.70 L (10.00-18.00) mmol/L BUN (7-17) mg/dL BUN/Creatinine Ratio 36.33 H (12.00-20.00) Ratio Glucose (74-99) mg/dL POC Glucose (mg/dL) 116 H (75-99) mg/dL AST 50 H (14-36) U/L ALT 76 H (4-34) U/L Total Protein 5.7 L (6.2-8.2) g/dL Urine Ketones (Negative) Assessment and Plan Assessment: Intractable nausea and vomiting with coffee ground emesis -Scheduled for EGD tomorrow -Continue with conservative management with IV fluids and antiemetics -Nothing by mouth after midnight Hypokalemia -Replace and monitor Chronic conditions: Type II DM, hypertension, COPD -Continue with home meds -Insulin sliding scale and blood glucose monitoring DVT prophylaxis -IPCDs CODE STATUS: Full Code Discussed with: Patient Anticipated discharge date: in am Anticipated discharge place: Home
[2022-04-20 16:42] LABS: Glucose,Whole Blood 103 mg/dL (75-99)
[2022-04-20 20:59] LABS: Glucose,Whole Blood 150 mg/dL (75-99)
[2022-04-20] MEDS ORDERED: MONTELUKAST 10 MG TAB PO SCH (21:00)
[2022-04-21 07:07] LABS: Glucose,Whole Blood 120 mg/dL (75-99)
[2022-04-21] MEDS: IPRATROPIUM 0.5 MG/2.5 ML NEBU INHALATION SCH ×3 (07:32→15:06)
[2022-04-21] MEDS: INSULIN ASPART (NovoLOG) 100 UNIT/ML VIAL SQ SCH ×2 (08:28→14:36)
[2022-04-21] MEDS: SERTRALINE 100 MG TAB PO SCH (08:29)
[2022-04-21] MEDS: amLODIPine 2.5 MG TAB PO SCH (08:29)
[2022-04-21] MEDS: EZETIMIBE 10 MG TAB PO SCH (08:29)
[2022-04-21] MEDS: PANTOPRAZOLE 40 MG/10 ML VIAL IVP SCH (10:18)
[2022-04-21] MEDS ORDERED: IV FLUID CONTINUATION 1,000 ML IV ONE ×2 (11:58)
[2022-04-21] MEDS ORDERED: PROPOFOL 10 MG/ML 20 ML VIAL IV ONE (12:00)
[2022-04-21] MEDS ORDERED: LIDOCAINE 2% INJ 20 MG/ML (2 ML VIAL) ONE (12:00)
--- NOTE | 2022-04-21 12:24 | P.PCN ---
Date of Procedure: 04/21/22 Description of Procedure: PREOPERATIVE DIAGNOSIS: Hematemesis POSTOPERATIVE DIAGNOSIS: Gastritis with bleeding Recurrent diaphragmatic hiatal hernia OPERATION: Esophagogastroduodenoscopy with biopsies along antrum. SURGEON: Gabby Patel MD ANESTHESIA: MAC. INDICATIONS: The patient is a 61-year-old female who presents with GI bleed and hematemesis. Benefits and risks of the procedure were described. Informed consent was obtained. DESCRIPTION: The patient was brought into the endoscopy suite and laid in the left lateral decubitus position. An Olympus gastroscope was passed along the posterior oropharynx down to the distal esophagus where the squamocolumnar junction was encountered at 35 cm from the incisors. The stomach was entered and no bile reflux was found. Additional findings are listed below. Biopsies with cold forceps were obtained of the antrum. The first through third portion of the duodenum was examined. Retroflexion of the scope confirmed Hill grade 4 lower esophageal valve. The squamocolumnar junction demonstrated LA grade B erosive esophagitis. The stomach was desufflated. The patient tolerated the procedure well. FINDINGS: Squamocolumnar junction 35 cm from the incisors. Diaphragmatic hiatus at 36 cm. Hiatal hernia, 1 cm Hill grade 3 lower esophageal valve. LA grade C erosive esophagitis. No active duodenitis. Chronic gastritis with bleed RECOMMENDATIONS: Add Carafate 1 g twice a day for 2-4 weeks Stable for discharge for follow-up as outpatient Plan - Discharge Summary New Discharge Prescriptions: New Sucralfate [Carafate] 1 gm PO BID #30 tablet Discontinued Black Cohosh Root [Black Cohosh] 200 mg PO DAILY No Action Sertraline [Zoloft] 100 mg PO DAILY Losartan-Hctz 50-12.5 mg [Hyzaar 50-12.5] 1 tab PO DAILY Ezetimibe [Zetia] 10 mg PO DAILY Tiotropium [place] [Spiriva] 1 cap INHALATION RT-DAILY Montelukast [Singulair] 10 mg PO HS Albuterol Sulfate [Proair Hfa] 1 - 2 puff INHALATION RT-Q6H PRN PRN Reason: Shortness Of Breath amLODIPine [Norvasc] 2.5 mg PO DAILY Alendronate Sodium [Fosamax] 70 mg PO MO Ondansetron Odt [Zofran Odt] 8 mg PO Q8HR PRN 7 Days #21 tab PRN Reason: Nausea Fluticasone Nasal [place] [Flonase Nasal [place]] 2 spray EA NOSTRIL DAILY EPINEPHrine (Auto Inject) [Epipen] 0.3 mg IM ONCE PRN PRN Reason: Anaphylaxis Multivitamins, Thera [Multivitamin (formulary)] 1 tab PO DAILY Calcium Carbonate [Calcium] 600 mg PO DAILY Benralizumab [Fasenra] 30 mg SQ Q56D Omeprazole [PriLOSEC] 40 mg PO DAILY PRN PRN Reason: ACID REFLUX metFORMIN HCL ER [Glucophage XR] 500 mg PO DAILY Discharge Medication List Albuterol Sulfate [Proair Hfa] 1 - 2 puff INHALATION RT-Q6H PRN 04/21/18 [History] Ezetimibe [Zetia] 10 mg PO DAILY 04/21/18 [History] Losartan-Hctz 50-12.5 mg [Hyzaar 50-12.5] 1 tab PO DAILY 04/21/18 [History] Montelukast [Singulair] 10 mg PO HS 04/21/18 [History] Sertraline [Zoloft] 100 mg PO DAILY 04/21/18 [History] Tiotropium [place] [Spiriva] 1 cap INHALATION RT-DAILY 04/21/18 [History] Alendronate Sodium [Fosamax] 70 mg PO MO 10/19/21 [History] Benralizumab [Fasenra] 30 mg SQ Q56D 10/19/21 [History] Calcium Carbonate [Calcium] 600 mg PO DAILY 10/19/21 [History] Multivitamins, Thera [Multivitamin (formulary)] 1 tab PO DAILY 10/19/21 [History] amLODIPine [Norvasc] 2.5 mg PO DAILY 10/19/21 [History] Ondansetron Odt [Zofran Odt] 8 mg PO Q8HR PRN 7 Days #21 tab 04/18/22 [Rx] EPINEPHrine (Auto Inject) [Epipen] 0.3 mg IM ONCE PRN 04/19/22 [History] Fluticasone Nasal [place] [Flonase Nasal [place]] 2 spray EA NOSTRIL DAILY 04/19/22 [History] Omeprazole [PriLOSEC] 40 mg PO DAILY PRN 04/19/22 [History] metFORMIN HCL ER [Glucophage XR] 500 mg PO DAILY 04/19/22 [History] Sucralfate [Carafate] 1 gm PO BID #30 tablet 04/21/22 [Rx] Follow up Appointment(s)/Referral(s): Brendan Solis MD [Primary Care Provider] - 1-2 days
[2022-04-21 12:45] LABS: Glucose,Whole Blood 101 mg/dL (75-99)
[2022-04-21 14:12] LABS: Basophils % (A) 0 %; Eosinophils % (A) 0 %; HCT 39.8 % (34.0-46.0); HGB 13.1 gm/dL (11.4-16.0); Lymphocytes # (A) 1.8 k/uL (1.0-4.8); Lymphocytes % (A) 23 %; MCH 28.9 pg (25.0-35.0); MCHC 32.9 g/dL (31.0-37.0); Mean Platelet Volume 8.1; Monocytes # (A) 0.5 k/uL (0-1.0); Monocytes % (A) 7 %; Neutrophils # (A) 5.4 k/uL (1.3-7.7); Neutrophils % (A) 69 %; Platelet Count 278 k/uL (150-450); RBC 4.52 m/uL (3.80-5.40); RDW 12.2 % (11.5-15.5); WBC 7.8 k/uL (3.8-10.6)
[2022-04-21 14:22] LABS: African American GFR (CKD) >90 (>60 ml/min/1.73 sqM); Anion Gap 6 mmol/L; Blood Urea Nitrogen 12 mg/dL (7-17); Calcium 8.8 mg/dL (8.4-10.2); Carbon Dioxide 28 mmol/L (22-30); Chloride 103 mmol/L (98-107); Glucose 181 mg/dL (74-99); Non-African American GFR(CKD) >90 (>60 ml/min/1.73 sqM); Potassium 3.5 mmol/L (3.5-5.1); Sodium 137 mmol/L (137-145)
[2022-04-21 14:35] VITALS: BP 122/66; PULSE 68; RESP 18; TEMP 97.9
--- NOTE | 2022-04-21 15:04 | P.DS ---
Providers Date of admission: 04/20/22 16:30 Attending physician: Asael Laguna MD Consults: 04/20/22 08:57 Consult Physician Routine Consulting Provider: Gabby Patel Consult Reason/Comments: GIB Do you want consulting provider notified?: Yes Primary care physician: Brendan Solis MD Hospital Course: Patient is a 60-year-old female with a PMH of type II DM, hypertension, COPD who presents to the emergency room with complaints of intractable nausea and vomiting. Patient reports her symptoms started about 3-4 days ago, at which time she went to an emergency room in [facility], where she underwent a CT abdomen which was unremarkable and was given Zofran prescription and was discharged home. She reports however that her symptoms persisted, and that she was unable to tolerate any food, including liquids. She reports to me episodes of vomiting to count, with occasional coffee ground and small amounts of blood. She did report mild aching abdominal discomfort shortly after vomiting. She reports not having a bowel movement during this time. The patient does have a history of cholecystectomy as well as candidal esophagitis which was treated last year. Denies melena or bright red blood per rectum. Also denies fever, chills, cough, chest pain, shortness of breath. Laboratory evaluation was remarkable for potassium of 3.1, AST 43, ALT 46, and lactic acid 0.9. Patient underwent EGD with gastrology team. Following findings were observed.Squamocolumnar junction 35 cm from the incisors. Diaphragmatic hiatus at 36 cm. Hiatal hernia, 1 cm Hill grade 3 lower esophageal valve. LA grade C erosive esophagitis. No active duodenitis. Chronic gastritis with bleed Patient is asked to continue and start Carafate 1 g twice a day for 4 weeks. Patient is okay to be discharged from gastrologist perspective. She is asked to follow up with PCP and GI. Patient Condition at Discharge: Good Plan - Discharge Summary New Discharge Prescriptions: New Sucralfate [Carafate] 1 gm PO BID #30 tablet Continue Sertraline [Zoloft] 100 mg PO DAILY Losartan-Hctz 50-12.5 mg [Hyzaar 50-12.5] 1 tab PO DAILY Ezetimibe [Zetia] 10 mg PO DAILY Tiotropium [place] [Spiriva] 1 cap INHALATION RT-DAILY Montelukast [Singulair] 10 mg PO HS Albuterol Sulfate [Proair Hfa] 1 - 2 puff INHALATION RT-Q6H PRN PRN Reason: Shortness Of Breath amLODIPine [Norvasc] 2.5 mg PO DAILY Alendronate Sodium [Fosamax] 70 mg PO MO Ondansetron Odt [Zofran ODT] 8 mg PO Q8HR PRN 7 Days #21 tab PRN Reason: Nausea Fluticasone Nasal [place] [Flonase Nasal [place]] 2 spray EA NOSTRIL DAILY EPINEPHrine (Auto Inject) [Epipen] 0.3 mg IM ONCE PRN PRN Reason: Anaphylaxis Multivitamins, Thera [Multivitamin (formulary)] 1 tab PO DAILY Calcium Carbonate [Calcium] 600 mg PO DAILY Benralizumab [Fasenra] 30 mg SQ Q56D Omeprazole [PriLOSEC] 40 mg PO DAILY PRN PRN Reason: ACID REFLUX metFORMIN HCL ER [Glucophage XR] 500 mg PO DAILY Discontinued Black Cohosh Root [Black Cohosh] 200 mg PO DAILY Discharge Medication List Albuterol Sulfate [Proair Hfa] 1 - 2 puff INHALATION RT-Q6H PRN 04/21/18 [History] Ezetimibe [Zetia] 10 mg PO DAILY 04/21/18 [History] Losartan-Hctz 50-12.5 mg [Hyzaar 50-12.5] 1 tab PO DAILY 04/21/18 [History] Montelukast [Singulair] 10 mg PO HS 04/21/18 [History] Sertraline [Zoloft] 100 mg PO DAILY 04/21/18 [History] Tiotropium [place] [Spiriva] 1 cap INHALATION RT-DAILY 04/21/18 [History] Alendronate Sodium [Fosamax] 70 mg PO MO 10/19/21 [History] Benralizumab [Fasenra] 30 mg SQ Q56D 10/19/21 [History] Calcium Carbonate [Calcium] 600 mg PO DAILY 10/19/21 [History] Multivitamins, Thera [Multivitamin (formulary)] 1 tab PO DAILY 10/19/21 [History] amLODIPine [Norvasc] 2.5 mg PO DAILY 10/19/21 [History] Ondansetron Odt [Zofran ODT] 8 mg PO Q8HR PRN 7 Days #21 tab 04/18/22 [Rx] EPINEPHrine (Auto Inject) [Epipen] 0.3 mg IM ONCE PRN 04/19/22 [History] Fluticasone Nasal [place] [Flonase Nasal [place]] 2 spray EA NOSTRIL DAILY 04/19/22 [History] Omeprazole [PriLOSEC] 40 mg PO DAILY PRN 04/19/22 [History] metFORMIN HCL ER [Glucophage XR] 500 mg PO DAILY 04/19/22 [History] Sucralfate [Carafate] 1 gm PO BID #30 tablet 04/21/22 [Rx] Follow up Appointment(s)/Referral(s): Brendan Solis MD [Primary Care Provider] - 1-2 days Gabby Patel MD [STAFF PHYSICIAN] - 1 Week Discharge Disposition: HOME SELF-CARE
== END 2022-04-21 16:00 | disposition home or self-care (01) | DRG 378 ==
LOC: EC 13:32 → 6NMEDSUR 19:08 → OBSVTOIN 04-20 16:30
PROVIDERS: ADMIT Internal Medicine; ATTEND Internal Medicine
PROC: 0DB78ZX Excision of Stomach, Pylorus, Via Natural or Artificial Opening Endoscopic, Diagnostic (ICD-10-PCS; principal; 2022-04-21 11:00)
DX: K29.51 Unspecified chronic gastritis with bleeding (principal); K22.10 Ulcer of esophagus without bleeding; K44.9 Diaphragmatic hernia without obstruction or gangrene; J44.9 Chronic obstructive pulmonary disease, unspecified; I10 Essential (primary) hypertension; F41.9 Anxiety disorder, unspecified; E11.9 Type 2 diabetes mellitus without complications; E78.5 Hyperlipidemia, unspecified; E86.0 Dehydration; E87.6 Hypokalemia; F32.A Depression, unspecified; Z79.83 Long term (current) use of bisphosphonates; Z79.84 Long term (current) use of oral hypoglycemic drugs; Z79.899 Other long term (current) drug therapy; Z86.73 Personal history of transient ischemic attack (TIA), and cerebral infarction without residual deficits; Z90.49 Acquired absence of other specified parts of digestive tract; Z98.51 Tubal ligation status; Z90.89 Acquired absence of other organs; Z98.890 Other specified postprocedural states; Z80.9 Family history of malignant neoplasm, unspecified; Z88.1 Allergy status to other antibiotic agents; Z88.5 Allergy status to narcotic agent; Z88.2 Allergy status to sulfonamides; Z86.19 Personal history of other infectious and parasitic diseases
CPT/HCPCS: 36415; 43235; 80048; 80053; 81003; 82150; 83605; 83690; 83735; 84484; 85025; 93005; 96361; 96374; 99284